=== PATIENT | male | born 1955 | race Caucasian/White ===

== ENCOUNTER 2022-02-07 09:04 | Day surgery (SDC) | payer MEDICARE, SELFPAY ==
[2021-12-04 13:19] VITALS: BMI 27.5
--- NOTE | 2021-12-09 08:41 | HO.ANESPROP2 ---
HPI - Anesthesia Eval Consult details Narrative: 66yo M for Colonoscopy PMF Active Problems Active Problems: All Active Problems (Updated 12/04/21 @ 13:14 by Chichi Saab RN) Allergic reaction (Acute) Cellulitis and abscess of left leg (Acute) Preop exam for internal medicine (Acute) Anxiety (Acute) Past Medical History Medical History (Updated 12/04/21 @ 13:14 by Chichi Saab RN) Anxiety Arthritis BPH (benign prostatic hyperplasia) Family History Family History (Updated 07/04/20 @ 11:02 by SHIVAM Carrion) Mother No problems noted. Father No problems noted. Surgical History Surgical History (Updated 12/04/21 @ 13:18 by Chichi aSab RN) H/O colonoscopy Hx of cataract surgery Hx of transurethral resection of prostate Social History Social History (Updated 07/04/20 @ 11:03 by SHIVAM Carrion) Alcohol intake: current Alcohol intake frequency: holidays/special occasions only Meds Allergies Allergy/AdvReac Type Severity Reaction Status Date / Time Erythromycin Allergy Intermediate Rash, Verified 12/04/21 13:13 redness and itching Home Medications Medication Instructions Recorded Confirmed Last Taken Type celecoxib 200 mg capsule 200 mg PO DAILY 04/10/20 07/05/20 Unknown History meloxicam 7.5 mg tablet 7.5 mg PO DAILY 04/10/20 07/05/20 Unknown History acetazolamide 500 mg 500 mg PO ONCE 07/04/20 07/05/20 Unknown History capsule,extended release brinzolamide 1 %-brimonidine 0.2 % 1 drp ophthalmic (eye) 07/04/20 07/05/20 Unknown History eye drops,suspension ofloxacin 0.3 % eye drops 1 drp ophthalmic (eye) 07/04/20 07/05/20 Unknown History prednisolone acetate 1 % eye 1 drp ophthalmic (eye) 07/04/20 07/05/20 Unknown History drops,suspension timolol maleate 0.5 % eye drops 1 drp ophthalmic (eye) BID 07/04/20 12/04/21 Unknown History betamethasone valerate 0.1 % lotion 1 appl topical DAILY 07/11/20 12/04/21 Unknown History gabapentin 600 mg tablet 600 mg PO BEDTIME 12/04/21 12/04/21 Unknown History Exam Exam Date and Time: December 09, 2021 0841 Height,Weight and Vital Signs: Height 6 ft Weight 92.079 kg Assessment and Plan Assessment Anesthesia Assessment: Chart Reviewed
--- NOTE | 2022-02-06 10:01 | P.CONAN_ITS ---
Documented by User: Kimberlyn Meyers NP 02/06/22 10:02 HPI - Anesthesia Eval Consult details Narrative: 66yo M for Colonoscopy PMFSH Active Problems Active Problems: All Active Problems (Updated 12/23/21 @ 10:18 by Jesse Burgos MD) Glaucoma (Acute) Arthritis (Acute) Chronic GERD (Acute) Physical exam (Acute) Allergic reaction (Acute) Cellulitis and abscess of left leg (Acute) Preop exam for internal medicine (Acute) Anxiety (Acute) Past Medical History Medical History Anxiety BPH (benign prostatic hyperplasia) Family History Family History (Updated 07/04/20 @ 11:02 by SHIVAM Carrion) Mother No problems noted. Father No problems noted. Surgical History Surgical History H/O colonoscopy Hx of cataract surgery Hx of transurethral resection of prostate Social History Social History (Updated 07/04/20 @ 11:03 by SHIVAM Carrion) Housing: House Alcohol intake: current Alcohol intake frequency: holidays/special occasions only Patient Tobacco Use Status: Never used Tobacco e-Cigarette/Vaping Use: Never Used Second Hand Smoke Exposure: No Use of substances other than those prescribed or required for medical reasons: No Are you DNR?: No Advance Directives: No Advance Directives Information Provided: Yes service: No Current occupational status: retired Cognitive needs: No Hearing needs: No Vision needs: Yes Meds Allergies Allergy/AdvReac Type Severity Reaction Status Date / Time No Known Allergies Allergy Verified 12/23/21 09:55 Home Medications Medication Instructions Recorded Confirmed Last Taken Type timolol maleate 0.5 % eye drops 1 drp ophthalmic (eye) BID 07/04/20 12/23/21 Unknown History gabapentin 600 mg tablet 600 mg PO BEDTIME 12/04/21 12/23/21 Unknown History Exam Exam Date and Time: February 06, 2022 1001 Height,Weight and Vital Signs: Height 6 ft Weight 92.079 kg Assessment and Plan Assessment Anesthesia Assessment: Chart Reviewed Documented by User: Ana Chappell MD 02/07/22 09:54 [facility] Past Medical History Medical History Anxiety BPH (benign prostatic hyperplasia) Family History Family History (Updated 07/04/20 @ 11:02 by SHIVAM Carrion) Mother No problems noted. Father No problems noted. Family history of problems with anesthesia: No Surgical History Surgical History H/O colonoscopy Hx of cataract surgery Hx of transurethral resection of prostate History of Problems with Anesthesia: No Social History Social History (Updated 07/04/20 @ 11:03 by SHIVAM Carrion) Housing: House Alcohol intake: current Alcohol intake frequency: holidays/special occasions only Patient Tobacco Use Status: Never used Tobacco e-Cigarette/Vaping Use: Never Used Second Hand Smoke Exposure: No Use of substances other than those prescribed or required for medical reasons: No Are you DNR?: No Advance Directives: No Advance Directives Information Provided: Yes service: No Current occupational status: retired Cognitive needs: No Hearing needs: No Vision needs: Yes Meds Allergies Allergy/AdvReac Type Severity Reaction Status Date / Time No Known Allergies Allergy Verified 12/23/21 09:55 Home Medications Medication Instructions Recorded Confirmed Last Taken Type timolol maleate 0.5 % eye drops 1 drp ophthalmic (eye) BID 07/04/20 12/23/21 Unknown History gabapentin 600 mg tablet 600 mg PO BEDTIME 12/04/21 12/23/21 Unknown History Exam Airway Mallampati Class: II TM Dist: >3cm Neck ROM: Full Loose/Missing/Broken Teeth: Yes and Upper Assessment and Plan Assessment Anesthesia Assessment: Anesthesia Plan Discussed Final Anesthetic Review Family History of Problems with Anesthesia: No History of Problems with Anesthesia: No NPO: Yes ASA Class: II Final Preanesthetic Review: No Changes in Pt Med Stat, Meds/Allgs Chart Reviewed, Consent Obtained/Reviewed and Anes Risks/Benef Reviewed Patient Risk: Low Procedure Risk: Low Anesthetic Plan Anesthetic Plan: MAC: Disposition: Standard PACU
[2022-02-07 09:28] VITALS: BMI 28.5
[2022-02-07 09:34] VITALS: BP 119/68; PULSE 67; RESP 17; TEMP 36.8; O2SAT 97
[2022-02-07] MEDS: Lactated Ringers 1,000 ML 100 ML IVCONT (09:49)
--- NOTE | 2022-02-07 09:55 | MHC.SHP ---
Pre-Procedural Eval Section A Date of Service: 02/07/22 Section B Chief Complaint: screening Details of Present Illness: see H&P no changes Relevant Family History (Specify if Yes): No Relevant Social History: None Present Medications: see Short Stay Collaborative assessment Medical History: No relevant PMH History of Previous Operations: No relevant previous surgery Allergies: Allergies Allergy/AdvReac Type Severity Reaction Status Date / Time No Known Allergies Allergy Verified 12/23/21 09:55 Review of Systems Sugical H&P ROS: Negative: Constitution, Cardiovascular, Respiratory, Neurological, Psychiatric, Hem-Onc, Allergic/Immunologic, Gastrointestinal, Genitourinary, Musculoskeletal, Integumentary, Endocrine and Eyes/Ears/Nose/Throat Exam Surgical H&P Exam: Normal: HEENT, Normal: Heart, Normal: Lungs, Normal: Extremities, Normal: Abdomen, Normal: Skin and Normal: Neurological Plan Diagnosis/Plan: Unchanged I have reviewed the history and physical and performed a pertinent physical examination on my patient. No changes have occurred unless specified.
--- NOTE | 2022-02-07 10:30 | PM.OP ---
Brief Operative Note Date of Service: 02/07/22 Pre-op diagnosis: screening Post-op diagnosis: same Procedure: colonoscopy Surgeon: Abdoulaye Min Was an Automotive Airconditioning Mechanic used for this Procedure?: No Estimated blood loss (mL): 2 Pathology: other Condition: stable Disposition: PACU
[2022-02-07 10:35] VITALS: BP 109/66; PULSE 62; RESP 16; TEMP 36.4
[2022-02-07 10:50] VITALS: BP 116/88; PULSE 58; RESP 18; TEMP 36.4; O2SAT 100
--- NOTE | 2022-02-07 11:06 | OP_ITS ---
SURGEON: Abdoulaye Min MD INDICATIONS: Colon cancer screening. PREOPERATIVE DIAGNOSIS: POSTOPERATIVE DIAGNOSIS: PROCEDURE PERFORMED: Colonoscopy to the terminal ileum with biopsy and snare polypectomy. ESTIMATED BLOOD LOSS: COMPLICATIONS: ANESTHESIA: ASSISTANTS: SPECIMENS: MEDICATIONS: Monitored anesthesia care. DESCRIPTION OF PROCEDURE: History and physical performed. The risks and benefits of the procedure were explained to the patient. Informed consent was obtained. The patient was placed in left lateral decubitus position. A digital rectal exam was performed and was found to be normal. The Olympus pediatric video colonoscope was introduced into the rectum and advanced to the cecum without difficulty. The cecum was identified by transillumination, palpation, and identification of ileocecal valve. Examination was performed. The scope was removed. He tolerated the procedure well and was returned to recovery area in stable condition. FINDINGS: The terminal ileum was examined and appeared normal. The visualized colonic mucosa was within normal limits without evidence of masses or ulcers. Two polyps were identified. The first was located at 70 cm measuring less than 5 mm and was removed with biopsy forceps. The second was located at 20 cm measuring approximately 8 mm, was removed with a snare. No other polyps were identified. There was moderate sigmoid diverticulosis with an area of luminal narrowing between 25 cm and 30 cm, but no obvious mass lesions identified. Retroflexed examination showed moderate-sized internal hemorrhoids. IMPRESSION: Colon polyps. RECOMMENDATIONS: Follow up the biopsy results. MD JOSE ALBERTO Paul/LAWANDA / [id number]
== END 2022-02-07 11:08 | disposition home or self-care (01) ==
PROVIDERS: PCP Internal Medicine; Visit Provider Internal Medicine Gastroenterology
PROC: 0DJD8ZZ Inspection of Lower Intestinal Tract, Via Natural or Artificial Opening Endoscopic (ICD-10-PCS; CPT 45378; principal; 2022-02-07 10:10)
DX: Z12.11 Encounter for screening for malignant neoplasm of colon (principal); K63.5 Polyp of colon; K57.30 Diverticulosis of large intestine without perforation or abscess without bleeding; K64.8 Other hemorrhoids; N40.0 Benign prostatic hyperplasia without lower urinary tract symptoms; F41.0 Panic disorder [episodic paroxysmal anxiety]; K59.03 Drug induced constipation; Z79.899 Other long term (current) drug therapy
CPT/HCPCS: 45385; 45380; 88305

== ENCOUNTER 2022-04-16 06:33 | Outpatient (REF) | payer MEDICARE, SELFPAY ==
--- NOTE | ~2022-04-16 | XR_ITS ---
EXAMINATION: XR FOOT, RIGHT CLINICAL INFORMATION: Soft tissue infection COMPARISON: None TECHNIQUE: AP, lateral, and oblique views of the right foot. FINDINGS: The bones and soft tissues are normal. No fracture. Alignment is anatomic. Joint spaces are maintained. Normal soft tissues. No abnormal air collection or soft tissue foreign body. Small plantar calcaneal spur. XR/XR foot RT min 3V IMPRESSION: Small plantar calcaneal spur. Otherwise unremarkable exam.
[2022-04-18 05:02] LABS: Lyme Abs Screen <0.90 index
== END 2022-04-16 06:34 | disposition home or self-care (01) ==
LOC: HO.XRAY 06:33
PROVIDERS: Absent Provider Nurse Practitioner Family; PCP Internal Medicine; Visit Provider Internal Medicine
DX: L08.9 Local infection of the skin and subcutaneous tissue, unspecified (principal); R60.0 Localized edema
CPT/HCPCS: 36415; 73630; 86617; 86618

== ENCOUNTER → 2022-05-13 12:53 | Outpatient (BNVA) | payer MEDICARE, SELFPAY | PROVIDERS: PCP Internal Medicine; Referring Provider Internal Medicine; Visit Provider Internal Medicine | DX: R07.2 Precordial pain (principal); R06.02 Shortness of breath | CPT/HCPCS: 93005; 99202 ==

== ENCOUNTER → 2022-07-03 09:53 | Outpatient (REF) | payer MEDICARE, SELFPAY ==
--- NOTE | 2022-07-03 09:56 | CA_ITS ---
Acquisition Time: 2022-07-03 10:41:27 Total Exercise Time: 00:03:44 Test Indications: cp, sob Medications: see chart Protocol: ERMA Max HR: 139 BPM 91% of Pred: 152 BPM Max BP: 152/080 mmHG Max Work Load: 5.4 METS Exercise stress test with exercise 3 min 44 sec of Erma protocol, achieving 90% MPHR, 5.4 METs, with report of sob and dizziness with request to stop as he was starting to get panicky , no chest discomfort, with isolated PAC, with normotensive response to exercise, without EKG changes meeting criteria for ischemia. In recovery his symptoms quickly resolved. Test reviewed with Dr Roach Referred By: Terry Roach Overread By: MICHAEL FRANK
--- NOTE | 2022-07-03 09:56 | CA_ITS ---
Transthoracic Echocardiogram Patient (Last, First, Middle): Kevin Calvert L Gender: Male Date of : 1955 Age: 66 Procedure Date: 07/03/2022 Procedure Type: Transthoracic Echocardiogram Location: OP Height: 182.88 cm Weight: 92.99 kg BSA: 2.15 m2 Heart Rate: bpm BP: 128 / 80 mmHg Jukebox Operator: SB Referring MD: Terry Roach MD Symptoms: R06.02 - Shortness of breath Study Quality: Adequate ECG Rhythm: Sinus Conclusions: - The left ventricular systolic function is normal. The visually estimated ejection fraction is between 60-65%. - No obvious valvular pathology seen on this study. Findings Left Ventricle Normal left ventricular cavity size. The left ventricular systolic function is normal. The visually estimated ejection fraction is between 60-65%. There is no evidence of regional wall motion abnormalities. Diastolic function is normal for age. There is mild septal asymmetric hypertrophy. LV peak GLS -19.3%. Right Ventricle Normal right ventricular cavity size and systolic function. Atria Both atria are normal in size. Aortic Valve There is a normal trileaflet aortic valve. There is no aortic valve stenosis. There is no aortic valve regurgitation. Mitral Valve The mitral valve appears normal. There is trace mitral valve regurgitation. There is no mitral valve stenosis. Pulmonic Valve The pulmonic valve is likely normal. Tricuspid Valve Normal tricuspid valve structure. There is trace tricuspid valve regurgitation. There is no evidence of pulmonary hypertension. Great Vessels The asc aorta is normal in size. Venous The inferior vena cava is normal in size and collapses greater than 50% with inspiration. Pericardium/Pleural There is no evidence of pericardial effusion. Prior Study Comparison No prior study available for comparison. Recommendations, Care & Conclusions No obvious valvular pathology seen on this study. Measurements 2D Linear Measurements IVSd: 1.25 0.6-0.9/0.6-1.0 cm LVIDd: 4.56 3.9-5.3/4.2-5.9 cm LVIDd Index: 2.12 2.4-3.2/2.2-3.1 cm/m2 LVIDs: 3.19 2.0-3.6 cm LVPWd: 0.80 0.7-1.1 cm LA Diam: 2.80 2.7-3.8/3.0-4.0 cm LAIDs Index: 1.30 1.5-2.3 cm/m2 LV Mass: 201.20 67-162/88-224 g LV Mass Index: 93.58 43-95/49-115 g/m2 LVOT Diam: 2.30 3.0+(-)1.3 cm 2D Systolic Function EF 4C: 59.80 >55% EF 2C: 77.80 >55% EF BiP: 70.30 >55% Mitral Valve MV Pk E: 0.63 MV PK A: 0.54 MV Decel Time: 228.00 E/A: 1.20 E'Lateral: 9.25 E'Medial: 6.31 E/E' Med: 10.00 E/E' Lat: 6.80 PHT: 67.00 MVA PHT: 3.28 Decel Yell: 2.76 Aortic Valve AoV Pk Wenceslao: 1.31 AoV Pk Grad: 7.00 MARA: 3.99 LVOT LVOT Pk Wenceslao: 1.26 LVOT Mn Wenceslao: 0.81 LVOT VTI: 0.27 LVOT Pk Grad: 6.00 LVOT Mn Grad: 3.00 LVOT Diam: 2.30 LVOT Area: 4.15 Diastolic Function MV Pk E: 0.63 MV Pk A: 0.54 E/A: 1.20 E'Medial: 6.31 E/E' Med: 10.00 E' Laterial: 9.25 E/E' Lat: 6.80 Right Ventricle TAPSE (mm): 24.30 TVS' Wenceslao: 11.50 Tricuspid Valve RA Press: 3.00 Great Vessels Aorta Sinus of Valsalva: 3.50 2.0-3.5 cm Ao Asc: 3.30 2.1-3.4 cm Pulmonary Veins Pulm Vein S/D 1.30 Pulmonary Valve PV Pk Wenceslao: 1.79 Peak PV Grad: 13.00 Updated in Other Vendor System with Status of Final Terry Roach MD electronically signed on 07/05/2022 12:29:41 PM with status of Final
== END ==
LOC: HO.CARD 09:53
PROVIDERS: PCP Internal Medicine; Visit Provider Internal Medicine
DX: R07.2 Precordial pain (principal); R06.02 Shortness of breath
CPT/HCPCS: 93017; 93306; 93356

== ENCOUNTER → 2022-09-10 12:27 | Outpatient (BNVA) | payer MEDICARE, SELFPAY | PROVIDERS: PCP Internal Medicine; Referring Provider Internal Medicine; Visit Provider Internal Medicine | DX: R07.2 Precordial pain (principal); R06.02 Shortness of breath; R94.39 Abnormal result of other cardiovascular function study | CPT/HCPCS: 99212 ==

== ENCOUNTER 2022-11-12 07:29 | Outpatient (REF) | payer MEDICARE, SELFPAY ==
--- NOTE | ~2022-11-12 | XR_ITS ---
EXAMINATION: XR CHEST CLINICAL INFORMATION: R06.00 - Dyspnea, unspecified COMPARISON: Chest radiographs 07/25/2017 TECHNIQUE: 2 views of the chest were obtained. FINDINGS: Heart size normal. Vascularity normal. No pneumothorax, airspace solid lesion, vascular congestion, or effusion. There is fine linear scar versus disc atelectasis left lower zone. Old small granuloma is again seen left perihilar region in retrospect similar to 2018. There is small sliding internal hernia approximately 5.5 cm retrocardiac region best seen on frontal view. The hilar and mediastinal contours are otherwise unremarkable. Bony structures are unremarkable. XR/XR chest 2V IMPRESSION: -No acute intrathoracic disease. No pneumothorax, infiltrate, or effusion. -Fine linear scar versus disc atelectasis inferior lingula. -Small sliding hiatal hernia.
[2022-11-12 07:37] LABS: MANUAL DIFF FLAG NO
[2022-11-12 08:08] LABS: Basophils Absolute Auto 0.1 X10*3/uL (0.0-0.2); Basophils Percent Auto 1.6 % (0-2); Eosinophils Absolute Auto 0.8 X10*3/uL (0.0-0.4); Eosinophils Percent Auto 10.8 % (0-4); Hemoglobin 11.5 g/dl (14.0-18.0); Imm Gran Abs Auto 0.02 X10*3/uL (0.00-0.03); Imm Gran Pct Auto 0.3 % (0.0-0.4); Lymphocytes Absolute Auto 1.8 X10*3/uL (1.2-4.9); Lymphocytes Percent Auto 23.6 % (20-40); Mean Corpuscular HGB Conc 30.3 g/dl (31.0-36.0); Mean Corpuscular Hemoglobin 24.8 pg (27.0-33.0); Mean Corpuscular Volume 81.9 fL (80.0-98.0); Mean Platelet Volume 10.8 fL (9.4-12.4); Monocytes Absolute Auto 0.8 X10*3/uL (0.1-1.2); Monocytes Percent Auto 10.5 % (2-11); Neutrophils Absolute Auto 4.1 x10*3/uL (2.0-8.3); Neutrophils Percent Auto 53.2 % (45-73); Platelet Count 250 X10*3/uL (160-400); Red Blood Count 4.64 X10*6/uL (4.60-5.80); White Blood Count 7.7 X10*3/uL (4.8-10.8)
[2022-11-12 08:55] LABS: Alanine Aminotransferase 20 U/L (0-40); Albumin Level 4.3 g/dL (3.5-5.0); Alkaline Phosphatase 70 U/L (39-117); Anion Gap 12 (12-20); Aspartate Amino Transferase 22 U/L (5-37); Bilirubin Total 0.6 mg/dL (0.0-1.0); Blood Urea Nitrogen 19 mg/dL (9-16); Calcium 9.3 mg/dL (8.4-10.2); Carbon Dioxide 28 mmol/L (22-29); Chloride 109 mmol/L (96-108); Cholesterol 181 mg/dL; Estimated Glomerular Filt Rate > 60; Glucose Fasting 93 mg/dL (60-99); Glucose Random 91 mg/dL (60-115); HDL Cholesterol 56 mg/dL; LDL Cholesterol Calculated 109 mg/dl; Potassium 4.5 mmol/L (3.3-5.1); Sodium 144 mmol/L (135-145); Triglycerides 80 mg/dL
[2022-11-12 09:15] LABS: Thyroid Stimulating Hormone 0.96 uIU/mL (0.32-4.0)
== END 2022-11-12 07:30 | disposition home or self-care (01) ==
LOC: HO.LAB 07:29
PROVIDERS: PCP Internal Medicine; Visit Provider Internal Medicine
DX: R07.2 Precordial pain (principal); E03.9 Hypothyroidism, unspecified; E78.5 Hyperlipidemia, unspecified; D64.9 Anemia, unspecified; N28.9 Disorder of kidney and ureter, unspecified; R06.00 Dyspnea, unspecified
CPT/HCPCS: 36415; 71046; 80048; 80053; 80061; 84443; 85025

== ENCOUNTER → 2022-12-22 12:48 | Outpatient (BNVA) | payer MEDICARE, SELFPAY | PROVIDERS: PCP Internal Medicine; Referring Provider Internal Medicine; Visit Provider Internal Medicine | DX: R06.02 Shortness of breath (principal); J43.9 Emphysema, unspecified | CPT/HCPCS: 99212 ==

== ENCOUNTER 2023-01-15 11:12 | Outpatient (REF) | payer MEDICARE, SELFPAY ==
--- NOTE | 2023-01-15 11:57 | PFT_ITS ---
FLOWS: 1. FEV1 84% of predicted at 3.00 L. 2. FVC 96% of predicted at 4.6 L. 3. FEV1 to FVC ratio of 0.65. 4. Positive bronchodilator response. LUNG VOLUMES: 1. Total lung capacity 84% of predicted at 6.29 L. 2. Residual volume 77% of predicted at 1.97 L. 3. Slow vital capacity 88% of predicted at 4.32 L. 4. Expiratory reserve volume 59% of predicted at 0.84 L. 5. Diffusion capacity is mildly decreased. IMPRESSION: Reversible moderate obstructive ventilatory defect with positive bronchodilator response. Decreased diffusion capacity suggests emphysema. MD ROSALIND Fall/MODL / [id number]
== END 2023-01-15 11:13 | disposition home or self-care (01) ==
LOC: HO.RESP 11:12
PROVIDERS: PCP Internal Medicine; Referring Provider Internal Medicine Pulmonary Disease; Visit Provider Internal Medicine
DX: R06.00 Dyspnea, unspecified (principal)
CPT/HCPCS: 94010; 94727; 94729

== ENCOUNTER → 2023-01-15 11:57 | Outpatient (BNV) | payer MEDICARE, SELFPAY | PROVIDERS: PCP Internal Medicine; Referring Provider Internal Medicine Pulmonary Disease; Visit Provider Internal Medicine Pulmonary Disease | DX: J43.9 Emphysema, unspecified (principal) | CPT/HCPCS: 94060; 94727; 94729 ==

== ENCOUNTER 2023-02-03 14:01 | Outpatient (AMB) | payer MEDICARE, SELFPAY ==
[2023-02-03 14:04] VITALS: BP 128/76; PULSE 92; O2SAT 96; BMI 28.9
--- NOTE | 2023-02-03 14:04 | A.OFFVIS_ITS ---
Intake Vital Signs 02/03/23 14:04 Height 6 ft Weight 212 lb 11.937 oz BMI 28.9 BP 128/76 Blood Pressure Location Lt brachial Position Sitting Pulse 92 Pulse Source Pulse Oximeter Pulse Oximetry (%) 96 Oxygen Delivery Method Room Air Intake Visit Reasons: Emphysema Intake Note: Pt reports head rushes when trying to tie his shoes and shortness of breath on exertion. He had a chest CT and completed a stress test and says he barely passed due to his shortness of breath. He says his lungs feel fine when he walks and that he has had blood in his urine. He also brings up mucus when coughing, denies wheezing. He has the albuterol inhaler but says it does not do anything so he gave it to his neighbor. Health Care Facilities Inspector Required: No Allergies No Known Allergies Allergy (Verified 02/03/23 14:11) HPI Emphysema HPI Details 67-year-old gentleman, former 40 pack-year smoker, quit 2016 undergoing cardiac workup for underlying dyspnea on exertion, noted to have pulmonary emphysema with moderate reversible obstruction and decreased diffusion capacity on pulmonary function testing and was referred for further follow-up. Patient states that he can walk without limitations on level ground, however he gets significant dyspnea with stairs or going up inclines. Patient recently had some bronchitic symptoms in was treated with amoxicillin by his primary care provider with resolution. He denies family history of lung disease. 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 He also complains of intermittent seasonal allergies. [facility]LY [facility] Medical History Anxiety BPH (benign prostatic hyperplasia) Surgical History H/O colonoscopy Hx of cataract surgery Hx of transurethral resection of prostate Family History Mother No problems noted. Father No problems noted. Social History (Updated 02/03/23 @ 14:13 by Mile Schwab CMA) Housing: House Alcohol intake: current Alcohol intake frequency: holidays/special occasions only Patient Tobacco Use Status: Former Tobacco user Tobacco use type: Cigarette Years Smoked: 40 e-Cigarette/Vaping Use: Never Used Second Hand Smoke Exposure: No service: No Current occupational status: retired Cognitive needs: No Hearing needs: No Vision needs: Yes Review of Systems Const Denies daytime sleepiness, Denies excessive sweating, Denies fatigue, Denies fever(s), Denies lethargy, Denies malaise, Denies night sweats, Denies snoring and Denies weight loss Eyes Denies blurry vision and Denies itchy eyes ENT Denies nasal congestion, Denies post nasal drip, Denies sinus pain, Denies sinus pressure and Denies other ( Thrush) Card Denies chest pain, Denies pedal edema, Denies dyspnea, Reports dyspnea on exertion, Denies orthopnea and Denies paroxysmal nocturnal dyspnea Resp Denies cough, Denies hemoptysis, Denies excessive phlegm production, Denies dyspnea, Reports dyspnea on exertion, Denies snoring and Denies wheezing GI Denies abdominal pain and Denies heartburn Musc Denies myalgias, Denies arthralgias and Denies joint swelling Skin/Breast Denies rash Neuro Denies memory loss and Denies seizure-like activity Psych Denies abnormal sleep pattern, Denies anxiety and Denies memory loss Endo Denies excessive sweating, Denies fatigue and Denies heat intolerance Paco/Lymph Denies easy bruising Aller/Immun Denies itchy eyes, Denies seasonal rhinorrhea and Denies wheezing Physical Exam Vital Signs: Last Vital Signs Pulse 92 02/03/23 14:04 BP 128/76 02/03/23 14:04 Pulse Ox 96 02/03/23 14:04 Oxygen Delivery Method Room Air 02/03/23 14:04 BMI result Body Mass Index 28.9 Const General: no acute distress and alert Nutritional Appearance: not obese Orientation/consciousness: Other orientation findings ( oriented) HEENT Head: Yes atraumatic Eyes General: appearance normal, both eyes and all related structures Sclerae: sclerae normal EOM: EOMs intact bilaterally Neck Neck: Yes supple Lymphatic: no lymphadenopathy noted Resp Effort & Inspection: normal respiratory effort and no use of accessory muscles Auscultation: clear to auscultation bilaterally Cardio Rate: regular rate Rhythm: regular rhythm Heart sounds: no gallops, no murmurs and no rubs Skin General skin exam: other ( warm) Extrem General: No clubbing, No cyanosis and No edema Assessment & Plan Assessment & Plan (1) COPD (chronic obstructive pulmonary disease): Code(s): J44.9 - Chronic obstructive pulmonary disease, unspecified Plan: Moderate COPD with good response to bronchodilator. Will start on Spiriva. Continue albuterol MDI. (2) ILD (interstitial lung disease): Code(s): J84.9 - Interstitial pulmonary disease, unspecified Plan: Possible underlying ILD with underlying decreased DLCO and after exposure to industrial dusts. Will obtain CT chest for further evaluation. Orders: Orders CT chest wo IV con Today J84.9 - Interstitial pulmonary disease, unspecified Medications: New Spiriva Respimat 2.5 mcg/actuation (tiotropium bromide) 2 inhalations inhalation QAM 30 days 4 grams 6RF NS J43.9 - Emphysema, unspecified Coding Level of Care Code New Pt Level 4 (48769) Diagnoses COPD (chronic obstructive pulmonary disease) J44.9 ILD (interstitial lung disease) J84.9
== END 2023-02-03 15:08 | disposition home or self-care (01) ==
PROVIDERS: PCP Internal Medicine; Visit Provider Internal Medicine Pulmonary Disease
DX: J44.9 Chronic obstructive pulmonary disease, unspecified (principal); J84.9 Interstitial pulmonary disease, unspecified
CPT/HCPCS: 99214

== ENCOUNTER → 2023-02-03 14:01 | Outpatient (BNVA) | payer MEDICARE, SELFPAY | PROVIDERS: PCP Internal Medicine; Visit Provider Internal Medicine Pulmonary Disease | DX: J44.9 Chronic obstructive pulmonary disease, unspecified (principal); J84.9 Interstitial pulmonary disease, unspecified | CPT/HCPCS: 99212 ==

== ENCOUNTER 2023-03-03 10:07 | Outpatient (REF) | payer MEDICARE, SELFPAY ==
--- NOTE | ~2023-03-03 | CT_ITS ---
EXAMINATION: CT CHEST WITHOUT CONTRAST CLINICAL INFORMATION: Interstitial pulmonary disease. COMPARISON: None available. TECHNIQUE: Multidetector volumetric CT imaging of the chest was done. Axial MIP volume rendering provided. Sagittal and coronal reformatted images were obtained. This CT examination was performed using dose optimization techniques as appropriate, variously including the following: *Automated exposure control *Adjustment of mA and/or kV according to patient size (this includes techniques or standardized protocols for targeted exams where dose is matched to indication/reason for exam; i.e. extremities or head) *Use of iterative reconstruction technique DLP: 384 mGy-cm FINDINGS: LUNGS: Mild centrilobular emphysema. 4 mm nodule right middle lobe on image 171. No thickening of the intralobular septa. No evidence of honeycombing. No parenchymal consolidation. Central airways are patent. MEDIASTINUM: Imaged thyroid gland is mildly heterogeneous. No bulky axillary, hilar or mediastinal lymphadenopathy. Patulous dilated esophagus containing fluid and debris. Left pulmonary artery is dilated. Heart size is normal. No pericardial effusion. CORONARY ARTERY CALCIFICATION: None visualized on this study. PLEURA: No pleural effusion. UPPER ABDOMEN: Moderate to large hiatal hernia. No adrenal mass. Colonic diverticular disease. Right renal cyst partially imaged. OSSEOUS STRUCTURES: No destructive bone lesions. CT/CT chest wo IV con IMPRESSION: 4 mm right middle lobe pulmonary nodule. Follow-up chest CT in 12 months may be considered. Dilated left main pulmonary artery. Patulous dilated esophagus.
== END 2023-03-03 10:08 | disposition home or self-care (01) ==
LOC: HO.CT 10:07
PROVIDERS: PCP Internal Medicine; Visit Provider Internal Medicine Pulmonary Disease
DX: J84.9 Interstitial pulmonary disease, unspecified (principal)
CPT/HCPCS: 71250

== ENCOUNTER 2023-03-17 13:57 | Outpatient (AMB) | payer MEDICARE, SELFPAY ==
[2023-03-17 14:05] VITALS: BP 124/77; PULSE 104; O2SAT 96; BMI 28.7
--- NOTE | 2023-03-17 14:05 | MHC.OFFVIS ---
Intake Vital Signs 03/17/23 14:05 Height 6 ft Weight 211 lb 10.3 oz BMI 28.7 BP 124/77 Blood Pressure Location Lt brachial Position Sitting Pulse 104 H Pulse Source Doppler Pulse Oximetry (%) 96 Oxygen Delivery Method Room Air Intake Visit Reasons: Emphysema Allergies No Known Allergies Allergy (Verified 03/17/23 14:09) HPI Emphysema HPI Details 67-year-old gentleman, former 40 pack-year smoker, quit 2016 undergoing cardiac workup for underlying dyspnea on exertion, noted to have pulmonary emphysema with moderate reversible obstruction and decreased diffusion capacity on pulmonary function testing and was referred for further follow-up. Patient states that he can walk without limitations on level ground, however he gets significant dyspnea with stairs or going up inclines. Patient recently had some bronchitic symptoms in was treated with amoxicillin by his primary care provider with resolution. He denies family history of lung disease. 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 He also complains of intermittent seasonal allergies. After the last office visit his insurance did not cover Anoro. He was unable to get Spiriva, and has been using Combivent instead with suboptimal control of his symptoms. He completed his CT chest that showed no pulmonary fibrosis, but a 4 mm nodule. He denies acute exacerbation. [facility] Medical History (Updated 03/17/23 @ 14:23 by Michael House MD) BPH (benign prostatic hyperplasia) Anxiety Surgical History Hx of transurethral resection of prostate H/O colonoscopy Hx of cataract surgery Family History Mother No problems noted. Father No problems noted. Social History Housing: House Alcohol intake: current Alcohol intake frequency: holidays/special occasions only Patient Tobacco Use Status: Former Tobacco user Tobacco use type: Cigarette Years Smoked: 40 e-Cigarette/Vaping Use: Never Used Second Hand Smoke Exposure: No service: No Current occupational status: retired Cognitive needs: No Hearing needs: No Vision needs: Yes Review of Systems Const Denies daytime sleepiness, Denies excessive sweating, Denies fatigue, Denies fever(s), Denies lethargy, Denies malaise, Denies night sweats, Denies snoring and Denies weight loss Eyes Denies blurry vision and Denies itchy eyes ENT Denies nasal congestion, Denies post nasal drip, Denies sinus pain, Denies sinus pressure and Denies other ( Thrush) Card Denies chest pain, Denies pedal edema, Denies dyspnea, Reports dyspnea on exertion, Denies orthopnea and Denies paroxysmal nocturnal dyspnea Resp Denies cough, Denies hemoptysis, Denies excessive phlegm production, Denies dyspnea, Reports dyspnea on exertion, Denies snoring and Denies wheezing GI Denies abdominal pain and Denies heartburn Musc Denies myalgias, Denies arthralgias and Denies joint swelling Skin/Breast Denies rash Neuro Denies memory loss and Denies seizure-like activity Psych Denies abnormal sleep pattern, Denies anxiety and Denies memory loss Endo Denies excessive sweating, Denies fatigue and Denies heat intolerance Paco/Lymph Denies easy bruising Aller/Immun Denies itchy eyes, Denies seasonal rhinorrhea and Denies wheezing Physical Exam Vital Signs: Last Vital Signs Pulse 104 H 03/17/23 14:05 BP 124/77 03/17/23 14:05 Pulse Ox 96 03/17/23 14:05 Oxygen Delivery Method Room Air 03/17/23 14:05 BMI result Body Mass Index 28.7 Const General: no acute distress and alert Nutritional Appearance: not obese Orientation/consciousness: Other orientation findings ( oriented) HEENT Head: Yes atraumatic Eyes General: appearance normal, both eyes and all related structures Sclerae: sclerae normal EOM: EOMs intact bilaterally Neck Neck: Yes supple Lymphatic: no lymphadenopathy noted Resp Effort & Inspection: normal respiratory effort and no use of accessory muscles Auscultation: clear to auscultation bilaterally Cardio Rate: regular rate Rhythm: regular rhythm Heart sounds: no gallops, no murmurs and no rubs Skin General skin exam: other ( warm) Extrem General: No clubbing, No cyanosis and No edema Assessment & Plan Assessment & Plan (1) COPD (chronic obstructive pulmonary disease): Code(s): J44.9 - Chronic obstructive pulmonary disease, unspecified Plan: Suboptimal control on Combivent. Will reorder Spiriva. Continue albuterol MDI. (2) Dyspnea: Code(s): R06.00 - Dyspnea, unspecified Plan: Likely multifactorial with underlying contribution from pulmonary and cardiac etiologies. (3) Pulmonary nodule: Code(s): R91.1 - Solitary pulmonary nodule Plan: Results of CT chest reviewed. No evidence of underlying fibrosis, some emphysema. 4 mm nodule. Will repeat CT chest in 12 months. Coding Level of Care Code Est Pt Level 4 (81488) Diagnoses COPD (chronic obstructive pulmonary disease) J44.9 Dyspnea R06.00 Pulmonary nodule R91.1
== END 2023-03-17 14:22 | disposition home or self-care (01) ==
PROVIDERS: PCP Internal Medicine; Visit Provider Internal Medicine Pulmonary Disease
DX: J44.9 Chronic obstructive pulmonary disease, unspecified (principal); R06.00 Dyspnea, unspecified; R91.1 Solitary pulmonary nodule
CPT/HCPCS: 99214

== ENCOUNTER → 2023-03-17 13:57 | Outpatient (BNVA) | payer MEDICARE, SELFPAY | PROVIDERS: PCP Internal Medicine; Visit Provider Internal Medicine Pulmonary Disease | DX: J44.9 Chronic obstructive pulmonary disease, unspecified (principal); R06.00 Dyspnea, unspecified; R91.1 Solitary pulmonary nodule | CPT/HCPCS: 99212 ==

== ENCOUNTER 2023-04-30 13:26 | Outpatient (AMB) | payer MEDICARE, SELFPAY ==
[2023-04-30 13:30] VITALS: BP 118/70; PULSE 101; O2SAT 97; BMI 29.4
--- NOTE | 2023-04-30 13:30 | MHC.OFFVIS ---
Intake Vital Signs 04/30/23 13:30 Height 6 ft Weight 217 lb 2.485 oz BMI 29.4 BP 118/70 Blood Pressure Location Lt brachial Position Sitting Pulse 101 H Pulse Source Pulse Oximeter Pulse Oximetry (%) 97 Oxygen Delivery Method Room Air Intake Visit Reasons: Emphysema Social Scientist Required: No Packing Machine Tender: Packing Machine Tender offered & declined Accompanied by: Self / Same As Patient Allergies No Known Allergies Allergy (Verified 04/30/23 13:34) Medication List - Last Reconciled 04/30/23 by Francy Sung LPN albuterol sulfate 90 mcg/actuation (ProAir HFA) 2 puffs PO Q6H PRN alprazolam 1 mg PO TID PRN dorzolamide 2% 1 drp ophthalmic (eye) BID doxepin 25 mg PO BEDTIME gabapentin 600 mg PO BEDTIME Spiriva Respimat 2.5 mcg/actuation (tiotropium bromide) 2 puffs inhalation QAM 30 days NS HPI Emphysema HPI Details 67-year-old gentleman, former 40 pack-year smoker, quit 2015 undergoing cardiac workup for underlying dyspnea on exertion, noted to have pulmonary emphysema with moderate reversible obstruction and decreased diffusion capacity on pulmonary function testing and was referred for further follow-up. Patient states that he can walk without limitations on level ground, however he gets significant dyspnea with stairs or going up inclines. Patient recently had some bronchitic symptoms in was treated with amoxicillin by his primary care provider with resolution. He denies family history of lung disease. 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 He also complains of intermittent seasonal allergies. After the last office visit patient has been started on Spiriva with improvement in his cough, however only minimal effect on his dyspnea. [facility] Medical History (Updated 03/17/23 @ 14:23 by Michael House MD) BPH (benign prostatic hyperplasia) Anxiety Surgical History Hx of transurethral resection of prostate H/O colonoscopy Hx of cataract surgery Family History Mother No problems noted. Father No problems noted. Social History (Updated 04/30/23 @ 13:36 by Francy Sung LPN) Housing: House Alcohol intake: current Alcohol intake frequency: holidays/special occasions only Patient Tobacco Use Status: Former Tobacco user Tobacco use type: Cigarette Years Smoked: 40 e-Cigarette/Vaping Use: Never Used Second Hand Smoke Exposure: No service: No Current occupational status: retired Cognitive needs: No Hearing needs: No Vision needs: Yes Review of Systems Const Denies daytime sleepiness, Denies excessive sweating, Denies fatigue, Denies fever(s), Denies lethargy, Denies malaise, Denies night sweats, Denies snoring and Denies weight loss Eyes Denies blurry vision and Denies itchy eyes ENT Denies nasal congestion, Denies post nasal drip, Denies sinus pain, Denies sinus pressure and Denies other ( Thrush) Card Denies chest pain, Denies pedal edema, Denies dyspnea, Reports dyspnea on exertion, Denies orthopnea and Denies paroxysmal nocturnal dyspnea Resp Denies cough, Denies hemoptysis, Denies excessive phlegm production, Denies dyspnea, Reports dyspnea on exertion, Denies snoring and Denies wheezing GI Denies abdominal pain and Denies heartburn Musc Denies myalgias, Denies arthralgias and Denies joint swelling Skin/Breast Denies rash Neuro Denies memory loss and Denies seizure-like activity Psych Denies abnormal sleep pattern, Denies anxiety and Denies memory loss Endo Denies excessive sweating, Denies fatigue and Denies heat intolerance Paco/Lymph Denies easy bruising Aller/Immun Denies itchy eyes, Denies seasonal rhinorrhea and Denies wheezing Physical Exam Vital Signs: Last Vital Signs Pulse 101 H 04/30/23 13:30 BP 118/70 04/30/23 13:30 Pulse Ox 97 04/30/23 13:30 Oxygen Delivery Method Room Air 04/30/23 13:30 BMI result Body Mass Index 29.4 Const General: no acute distress and alert Nutritional Appearance: not obese Orientation/consciousness: Other orientation findings ( oriented) HEENT Head: Yes atraumatic Eyes General: appearance normal, both eyes and all related structures Sclerae: sclerae normal EOM: EOMs intact bilaterally Neck Neck: Yes supple Lymphatic: no lymphadenopathy noted Resp Effort & Inspection: normal respiratory effort and no use of accessory muscles Auscultation: clear to auscultation bilaterally Cardio Rate: regular rate Rhythm: regular rhythm Heart sounds: no gallops, no murmurs and no rubs Skin General skin exam: other ( warm) Extrem General: No clubbing, No cyanosis and No edema Assessment & Plan Assessment & Plan (1) Emphysema lung: Code(s): J43.9 - Emphysema, unspecified (2) COPD (chronic obstructive pulmonary disease): Code(s): J44.9 - Chronic obstructive pulmonary disease, unspecified Plan: Improved, but still suboptimally controlled on Spiriva, will change to Stiolto. Continue albuterol MDI. (3) Pulmonary nodule: Code(s): R91.1 - Solitary pulmonary nodule Plan: Underlying 4 mm nodule. Will repeat CT chest in February 2024. Ordered. Orders: Orders CT chest wo IV con 02/29/24 R91.1 - Solitary pulmonary nodule Medications: New Stiolto Respimat 2.5-2.5 mcg/actuation (tiotropium-olodaterol) 2 puffs inhalation DAILY 4 grams 6RF 30 days NS Discontinued Spiriva Respimat 2.5 mcg/actuation (tiotropium bromide) Discontinued Reason: Doctor's Order 2 puffs inhalation QAM 30 days 4 grams 6RF NS Coding Level of Care Code Est Pt Level 4 (37271) Diagnoses Emphysema lung J43.9 COPD (chronic obstructive pulmonary disease) J44.9 Pulmonary nodule R91.1
== END 2023-04-30 13:46 | disposition home or self-care (01) ==
PROVIDERS: PCP Internal Medicine; Visit Provider Internal Medicine Pulmonary Disease
DX: J44.9 Chronic obstructive pulmonary disease, unspecified (principal); R91.1 Solitary pulmonary nodule
CPT/HCPCS: 99214

== ENCOUNTER → 2023-04-30 13:26 | Outpatient (BNVA) | payer MEDICARE, SELFPAY | PROVIDERS: PCP Internal Medicine; Visit Provider Internal Medicine Pulmonary Disease | DX: J43.9 Emphysema, unspecified (principal); J44.9 Chronic obstructive pulmonary disease, unspecified; R91.1 Solitary pulmonary nodule | CPT/HCPCS: 99212 ==

== ENCOUNTER 2023-07-28 13:28 | Outpatient (AMB) | payer MEDICARE, SELFPAY ==
[2023-07-28 13:30] VITALS: BP 142/78; PULSE 97; O2SAT 98; BMI 29.6
--- NOTE | 2023-07-28 13:30 | MHC.OFFVIS ---
Intake Vital Signs 07/28/23 13:30 Height 6 ft Weight 218 lb BMI 29.6 BP 142/78 H Blood Pressure Location Rt brachial Position Sitting Pulse 97 Pulse Source Doppler Pulse Oximetry (%) 98 Oxygen Delivery Method Room Air Intake Visit Reasons: Emphysema Allergies No Known Allergies Allergy (Verified 07/28/23 13:35) HPI Emphysema HPI Details 67-year-old gentleman, former 40 pack-year smoker, quit 2016 undergoing cardiac workup for underlying dyspnea on exertion, noted to have pulmonary emphysema with moderate reversible obstruction and decreased diffusion capacity on pulmonary function testing and was referred for further follow-up. Patient states that he can walk without limitations on level ground, however he gets significant dyspnea with stairs or going up inclines. Patient recently had some bronchitic symptoms in was treated with amoxicillin by his primary care provider with resolution. He denies family history of lung disease. 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 He also complains of intermittent seasonal allergies. After the last office visit patient was changed to Stiolto, however he decided to go back to Spiriva, and then recently again decided to try Stiolto, so far with inadequate therapeutic trial. He denies recent exacerbations. [facility] Medical History (Updated 03/17/23 @ 14:23 by Michael House MD) BPH (benign prostatic hyperplasia) Anxiety Surgical History Hx of transurethral resection of prostate H/O colonoscopy Hx of cataract surgery Family History Mother No problems noted. Father No problems noted. Social History Housing: House Alcohol intake: current Alcohol intake frequency: holidays/special occasions only Patient Tobacco Use Status: Former Tobacco user Tobacco use type: Cigarette Years Smoked: 40 e-Cigarette/Vaping Use: Never Used Second Hand Smoke Exposure: No service: No Current occupational status: retired Cognitive needs: No Hearing needs: No Vision needs: Yes Review of Systems Const Denies daytime sleepiness, Denies excessive sweating, Denies fatigue, Denies fever(s), Denies lethargy, Denies malaise, Denies night sweats, Denies snoring and Denies weight loss Eyes Denies blurry vision and Denies itchy eyes ENT Denies nasal congestion, Denies post nasal drip, Denies sinus pain, Denies sinus pressure and Denies other ( Thrush) Card Denies chest pain, Denies pedal edema, Denies dyspnea, Denies orthopnea and Denies paroxysmal nocturnal dyspnea Resp Denies cough, Denies hemoptysis, Denies excessive phlegm production, Denies dyspnea, Denies snoring and Denies wheezing GI Denies abdominal pain and Denies heartburn Musc Denies myalgias, Denies arthralgias and Denies joint swelling Skin/Breast Denies rash Neuro Denies memory loss and Denies seizure-like activity Psych Denies abnormal sleep pattern, Denies anxiety and Denies memory loss Endo Denies excessive sweating, Denies fatigue and Denies heat intolerance Paco/Lymph Denies easy bruising Aller/Immun Denies itchy eyes, Denies seasonal rhinorrhea and Denies wheezing Physical Exam Vital Signs: Last Vital Signs Pulse 97 07/28/23 13:30 BP 142/78 H 07/28/23 13:30 Pulse Ox 98 07/28/23 13:30 Oxygen Delivery Method Room Air 07/28/23 13:30 BMI result Body Mass Index 29.6 Const General: no acute distress and alert Nutritional Appearance: not obese Orientation/consciousness: Other orientation findings ( oriented) HEENT Head: Yes atraumatic Eyes General: appearance normal, both eyes and all related structures Sclerae: sclerae normal EOM: EOMs intact bilaterally Neck Neck: Yes supple Lymphatic: no lymphadenopathy noted Resp Effort & Inspection: normal respiratory effort and no use of accessory muscles Auscultation: clear to auscultation bilaterally Cardio Rate: regular rate Rhythm: regular rhythm Heart sounds: no gallops, no murmurs and no rubs Skin General skin exam: other ( warm) Extrem General: No clubbing, No cyanosis and No edema Assessment & Plan Assessment & Plan (1) COPD (chronic obstructive pulmonary disease): Code(s): J44.9 - Chronic obstructive pulmonary disease, unspecified Plan: Suboptimal control as patient did not have an adequate therapeutic Stiolto trial. Continue Stiolto and albuterol MDI. (2) Pulmonary nodule: Code(s): R91.1 - Solitary pulmonary nodule Plan: Underlying 4 mm pulmonary nodules. Follow-up CT scans pending for February of 2024. Coding Level of Care Code Est Pt Level 4 (37907) Diagnoses COPD (chronic obstructive pulmonary disease) J44.9 Pulmonary nodule R91.1
== END 2023-07-28 13:47 | disposition home or self-care (01) ==
PROVIDERS: PCP Internal Medicine; Visit Provider Internal Medicine Pulmonary Disease
DX: J44.9 Chronic obstructive pulmonary disease, unspecified (principal); R91.1 Solitary pulmonary nodule
CPT/HCPCS: 99214

== ENCOUNTER → 2023-07-28 13:28 | Outpatient (BNVA) | payer MEDICARE, SELFPAY | PROVIDERS: PCP Internal Medicine; Visit Provider Internal Medicine Pulmonary Disease | DX: J44.9 Chronic obstructive pulmonary disease, unspecified (principal); R91.1 Solitary pulmonary nodule; Z79.899 Other long term (current) drug therapy | CPT/HCPCS: 99212 ==

== ENCOUNTER 2023-08-19 08:30 | Outpatient (AMB) | payer MEDICARE, SELFPAY ==
[2023-08-19 08:34] VITALS: BP 130/74; PULSE 86; O2SAT 98; BMI 29.4
--- NOTE | 2023-08-19 08:34 | A.OFFPC_ITS ---
Vital Signs 08/19/23 08:34 Height 6 ft Weight 217 lb BMI 29.4 BP 130/74 Blood Pressure Location Lt brachial Position Sitting Pulse 86 Pulse Source Pulse Oximeter Pulse Oximetry (%) 98 Oxygen Delivery Method Room Air Intake Visit Reasons: Heart burn/leg pain Straightener Required: No Wound Care Physician: Not Required per policy Accompanied by: Self / Same As Patient Allergies No Known Allergies Allergy (Verified 08/19/23 08:35) Medication List - Last Reconciled 08/19/23 by eJsse Burgos MD albuterol sulfate 90 mcg/actuation (ProAir HFA) 2 puffs PO Q6H PRN alprazolam 1 mg PO TID PRN amoxicillin 250 mg PO Q8H dorzolamide 2% 1 drp ophthalmic (eye) BID doxepin 25 mg PO BEDTIME gabapentin 600 mg PO BEDTIME omeprazole 20 mg PO DAILY Stiolto Respimat 2.5-2.5 mcg/actuation (tiotropium-olodaterol) 2 puffs inhalation DAILY 30 days NS Tobacco use date assessed: 08/19/23 Fall risk assessment: No Falls in past year Last assessed Fall Risk: 08/19/23 Dental Screening Dental Screen Date: 08/19/23 Did you have a dental visit in the last 12 months?: Yes Did you have a dental problem in the last 6 months where you did not have access to dental care?: No Was dental information given to patient?: Patient has dentist HPI Heart burn/leg pain HPI Details GERD symptoms chronically PFSH Medical History (Updated 03/17/23 @ 14:23 by Michael House MD) BPH (benign prostatic hyperplasia) Anxiety Surgical History Hx of transurethral resection of prostate H/O colonoscopy Hx of cataract surgery Family History Mother No problems noted. Father No problems noted. Social History Housing: House Alcohol intake: current Alcohol intake frequency: holidays/special occasions only Patient Tobacco Use Status: Former Tobacco user Tobacco use type: Cigarette Years Smoked: 40 e-Cigarette/Vaping Use: Never Used Second Hand Smoke Exposure: No service: No Current occupational status: retired Cognitive needs: No Hearing needs: No Vision needs: Yes Questionnaire PHQ-9 Over the last 2 weeks, how often have you been bothered by any of the following problems? 1. Little interest or pleasure in doing things: not at all 2. Feeling down, depressed, or hopeless: not at all 3. Trouble falling or staying asleep, or sleeping too much: not at all 4. Feeling tired or having little energy: not at all 5. Poor appetite or overeating: not at all 6. Feeling bad about yourself - or that you are a failure or have let yourself or your family down: not at all 7. Trouble concentrating on things, such as reading the newspaper or watching television: not at all 8. Moving or speaking so slowly that other people could have noticed. Or the opposite - being so fidgety or restless that you have been moving around a lot more than usual: not at all 9. Thoughts that you would be better off or of hurting yourself in some w ay: not at all Total score: 0 Depression Screening Interpretation: Negative Depression Screening Done: Yes 80485 - PHQ-9 Billing: Yes Source: Developed by Drs. Kameron Purcell, Lisseth Marinelli, Bebeto Cole and colleagues, with an educational pancho from [employer]. Thrive Questionnaire Date Thrive assessed: 08/19/23 I am a: Patient What is your living situation today?: I have a steady place to live Within the past 12 months, did the food you bought not last and you didn't have the money to get more?: Never true Within the past 12 months, did you worry whether your food would run out before you got money to buy more?: Never true Do you have trouble paying for medicines?: No Do you have trouble getting transportation to medical appointments?: No Do you have trouble paying your heating and electricity bill?: No Do you have trouble taking care of your child, family member or friend?: No Do you have trouble with day-to-day activities such as bathing, preparing meals, shopping, managing finances, etc.?: No Are you currently unemployed and looking for a job?: No Are you interested in more education?: No Please select the resources that you would like help with: None THRIVE Score: 0 AUDIT C Alcohol Use Questionnaire (AUDIT-C) 1. How often do you have a drink containing alcohol?: Never Total Score: 0 Score Reviewed/Action Taken: Yes HANG-7 AMB Questionnaire HANG-7 Date HANG - 7 assessed: 08/19/23 Feeling nervous, anxious, or on edge: 0 = Not at all Not being able to stop or control worryin = Not at all Worrying too much about different things: 0 = Not at all Trouble relaxin = Not at all Being so restless that it is hard to sit still: 0 = Not at all Becoming easily annoyed or irritable: 0 = Not at all Feeling afraid as if something awful might happen: 0 = Not at all Total HANG-7 score (0-4 normal; 5-9 mild; 10-14 moderate; 15-21 severe): 0 Source: Developed by Drs. Kameron Purcell, Lisseth Marinelli, Bebeto Cole and colleagues, with an educational pancho from [employer]. HANG-7 Assessment Billing HANG-7 Assessment Tool: HANG-7 Assessment 85557 Review of Systems Const Denies chills, Denies headache(s) and Denies weight loss ENT Denies headache(s) Card Denies chest pain, Denies syncope, Denies irregular heart rhythm and Denies dyspnea Resp Denies chest congestion, Denies cough and Denies dyspnea GI Denies abdominal pain, Denies change in stool character, Denies nausea and Denies vomiting Musc Denies deformity and Denies joint swelling Neuro Denies syncope and Denies headache(s) Physical exam (Primary Care) Vital Signs: Last Vital Signs Pulse 86 08/19/23 08:34 BP 130/74 08/19/23 08:34 Pulse Ox 98 08/19/23 08:34 Oxygen Delivery Method Room Air 08/19/23 08:34 BMI result Body Mass Index 29.4 Tobacco/Smoking Status: Tobacco use Status Tobacco use date assessed 08/19/23 08/19/23 08:36 Patient Tobacco Use Status Former Tobacco user 08/19/23 08:36 Tobacco use type Cigarette 08/19/23 08:36 e-Cigarette/Vaping Use Never Used 08/19/23 08:36 PHQ-9: PHQ-9 Score PHQ-9: Total score 0 08/19/23 09:19 Depression Screening Interpretation: Negative Thrive Assessment: Date of Thrive Assessment Date Thrive assessed 08/19/23 08/19/23 08:36 Const General: cooperative, comfortable, no acute distress and alert Neck Neck: Yes no lymphadenopathy Thyroid: Thyroid normal Resp Effort & Inspection: normal respiratory effort Auscultation: clear to auscultation bilaterally Percussion: percussion normal Cardio Jugular venous distension: no JVD Palpation: normal PMI Rate: regular rate Rhythm: regular rhythm Heart sounds: S1 normal heart sound present and S2 normal heart sound present GI Inspection: Yes normal to inspection Palpation (GI): No hepatosplenomegaly present Skin General skin exam: no rashes or lesions noted Extrem General: Yes no clubbing, cyanosis or edema Assessment and Plan Assessment & Plan (1) Chronic GERD: Code(s): K21.9 - Gastro-esophageal reflux disease without esophagitis Plan: rx sent; labs Orders: Orders Lipid Panel Today E78.5 - Hyperlipidemia, unspecified Complete Blood Count Auto Diff Today D64.9 - Anemia, unspecified Comprehensive [place]. Panel Fast Today N28.9 - Disorder of kidney and ureter, unspecified Thyroid Stimulating Hormone Today E03.9 - Hypothyroidism, unspecified Medications: New omeprazole 20 mg PO DAILY 90 tabs 8RF amoxicillin 250 mg PO Q8H 30 caps 0RF Coding Level of Care Code Est Pt Level 3 (32956) Diagnoses Chronic GERD K21.9 Additional Codes HANG-7 Assessment Billing - HANG-7 Assessment Tool: HANG-7 Assessment 71270 ([id number])
== END 2023-08-19 08:59 | disposition home or self-care (01) ==
PROVIDERS: PCP Internal Medicine; Visit Provider Internal Medicine
DX: K21.9 Gastro-esophageal reflux disease without esophagitis (principal)
CPT/HCPCS: 99213

== ENCOUNTER 2023-08-19 09:04 | Outpatient (REF) | payer MEDICARE, SELFPAY ==
[2023-08-19 10:15] LABS: Prostate Specific Antigen 6.79 ng/mL (<0.05-4.0)
== END 2023-08-19 09:05 | disposition home or self-care (01) ==
LOC: HO.LAB 09:04
PROVIDERS: PCP Internal Medicine; Visit Provider Physician Assistant Surgical
DX: N40.1 Benign prostatic hyperplasia with lower urinary tract symptoms (principal); N13.8 Other obstructive and reflux uropathy; N28.9 Disorder of kidney and ureter, unspecified; Z12.5 Encounter for screening for malignant neoplasm of prostate
CPT/HCPCS: 36415; 84153

== ENCOUNTER 2023-09-28 08:14 | Outpatient (REF) | payer MEDICARE, SELFPAY ==
[2023-09-29 11:04] LABS: Free Prostate Spec Ag 1.4 ng/mL; Percent Free Prostate Spec Ag 23 % (calc) (>25); Prostate Specific Ag Total 6.1 ng/mL (< OR = 4.0)
== END 2023-09-28 08:15 | disposition home or self-care (01) ==
LOC: HO.LAB 08:14
PROVIDERS: Urology; PCP Internal Medicine; Visit Provider Internal Medicine
DX: R97.20 Elevated prostate specific antigen [PSA] (principal)
CPT/HCPCS: 36415; 84154

== ENCOUNTER 2023-10-12 09:36 | Outpatient (REF) | payer MEDICARE, SELFPAY ==
[2023-10-12 09:56] LABS: MANUAL DIFF FLAG NO
[2023-10-12 10:55] LABS: Basophils Absolute Auto 0.1 X10*3/uL (0.0-0.2); Eosinophils Absolute Auto 0.8 X10*3/uL (0.0-0.4); Eosinophils Percent Auto 6.7 % (0-4); Hematocrit 29.7 % (42.0-52.0); Hemoglobin 8.3 g/dl (14.0-18.0); Imm Gran Abs Auto 0.04 X10*3/uL (0.00-0.03); Imm Gran Pct Auto 0.3 % (0.0-0.4); Lymphocytes Absolute Auto 1.9 X10*3/uL (1.2-4.9); Lymphocytes Percent Auto 16.3 % (20-40); Mean Corpuscular HGB Conc 27.9 g/dl (31.0-36.0); Mean Corpuscular Hemoglobin 19.9 pg (27.0-33.0); Mean Corpuscular Volume 71.1 fL (80.0-98.0); Mean Platelet Volume 10.8 fL (9.4-12.4); Monocytes Absolute Auto 1.1 X10*3/uL (0.1-1.2); Monocytes Percent Auto 9.1 % (2-11); Neutrophils Absolute Auto 7.8 x10*3/uL (2.0-8.3); Neutrophils Percent Auto 66.6 % (45-73); Platelet Count 307 X10*3/uL (160-400); Red Blood Count 4.18 X10*6/uL (4.60-5.80); Red Cell Distribution Width 15.6 % (11.0-16.0); White Blood Count 11.7 X10*3/uL (4.8-10.8)
[2023-10-12 12:02] LABS: Alanine Aminotransferase 19 U/L (0-40); Albumin Level 4.2 g/dL (3.5-5.0); Alkaline Phosphatase 65 U/L (39-117); Anion Gap 12 (12-20); Aspartate Amino Transferase 17 U/L (5-37); Bilirubin Total 0.4 mg/dL (0.0-1.0); Blood Urea Nitrogen 15 mg/dL (9-16); Calcium 9.6 mg/dL (8.4-10.2); Carbon Dioxide 26 mmol/L (22-29); Chloride 106 mmol/L (96-108); Cholesterol 170 mg/dL (<200); Estimated Glomerular Filt Rate 56; Glucose Fasting 90 mg/dL (60-99); HDL Cholesterol 63 mg/dL (>40); LDL Cholesterol Calculated 96 mg/dL (<100); Potassium 4.1 mmol/L (3.3-5.1); Sodium 140 mmol/L (135-145); Thyroid Stimulating Hormone 1.21 uIU/mL (0.32-4.0); Total Protein 7.3 g/dL (6.5-8.0); Triglycerides 58 mg/dL (<150)
== END 2023-10-12 09:37 | disposition home or self-care (01) ==
LOC: HO.LAB 09:36
PROVIDERS: PCP Internal Medicine; Visit Provider Internal Medicine
DX: E78.5 Hyperlipidemia, unspecified (principal); D64.9 Anemia, unspecified; N28.9 Disorder of kidney and ureter, unspecified; E03.9 Hypothyroidism, unspecified
CPT/HCPCS: 36415; 80053; 80061; 84443; 85025

== ENCOUNTER 2023-10-23 12:57 | Outpatient (AMB) | payer MEDICARE, SELFPAY ==
[2023-10-23 13:04] VITALS: BP 104/62; PULSE 94; O2SAT 95; BMI 29.7
--- NOTE | 2023-10-23 13:04 | A.OFFVIS_ITS ---
Vital Signs 10/23/23 13:04 Height 6 ft Weight 219 lb 5.759 oz BMI 29.7 BP 104/62 Blood Pressure Location Rt brachial Position Sitting Pulse 94 Pulse Source Doppler Pulse Oximetry (%) 95 Oxygen Delivery Method Room Air Intake Visit Reasons: Emphysema Allergies No Known Allergies Allergy (Verified 10/23/23 13:06) HPI HPI Emphysema: Details: 68-year-old gentleman, former 40 pack-year smoker, quit 2016 undergoing cardiac workup for underlying dyspnea on exertion, noted to have pulmonary emphysema with moderate reversible obstruction and decreased diffusion capacity on pulmonary function testing and was referred for further follow-up. Patient states that he can walk without limitations on level ground, however he gets significant dyspnea with stairs or going up inclines. Patient recently had some bronchitic symptoms in was treated with amoxicillin by his primary care provider with resolution. He denies family history of lung disease. 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 He also complains of intermittent seasonal allergies. He has tried Stiolto for greater than 1 months with no significant changes in his symptoms. [facility] Medical History (Updated 10/23/23 @ 13:26 by Michael House MD) BPH (benign prostatic hyperplasia) Anxiety Surgical History Hx of transurethral resection of prostate H/O colonoscopy Hx of cataract surgery Family History Mother No problems noted. Father No problems noted. Social History Housing: House Alcohol intake: current Alcohol intake frequency: holidays/special occasions only Patient Tobacco Use Status: Former Tobacco user Tobacco use type: Cigarette Years Smoked: 40 e-Cigarette/Vaping Use: Never Used Second Hand Smoke Exposure: No service: No Current occupational status: retired Cognitive needs: No Hearing needs: No Vision needs: Yes Review of Systems Const Denies daytime sleepiness, Denies excessive sweating, Denies fatigue, Denies fever(s), Denies lethargy, Denies malaise, Denies night sweats, Denies snoring and Denies weight loss Eyes Denies blurry vision and Denies itchy eyes ENT Denies nasal congestion, Denies post nasal drip, Denies sinus pain, Denies sinus pressure and Denies other ( Thrush) Card Denies chest pain, Denies pedal edema, Denies dyspnea, Reports dyspnea on exer tion, Denies orthopnea and Denies paroxysmal nocturnal dyspnea Resp Denies cough, Denies hemoptysis, Denies excessive phlegm production, Denies dyspnea, Reports dyspnea on exertion, Denies snoring and Denies wheezing GI Denies abdominal pain and Denies heartburn Musc Denies myalgias, Denies arthralgias and Denies joint swelling Skin/Breast Denies rash Neuro Denies memory loss and Denies seizure-like activity Psych Denies abnormal sleep pattern, Denies anxiety and Denies memory loss Endo Denies excessive sweating, Denies fatigue and Denies heat intolerance Paco/Lymph Denies easy bruising Aller/Immun Denies itchy eyes, Denies seasonal rhinorrhea and Denies wheezing Physical Exam Vital Signs: Last Vital Signs Pulse 94 10/23/23 13:04 BP 104/62 10/23/23 13:04 Pulse Ox 95 10/23/23 13:04 Oxygen Delivery Method Room Air 10/23/23 13:04 BMI result Body Mass Index 29.7 Const General: no acute distress and alert Nutritional Appearance: not obese Orientation/consciousness: Other orientation findings ( oriented) HEENT Head: Yes atraumatic Eyes General: appearance normal, both eyes and all related structures Sclerae: sclerae normal EOM: EOMs intact bilaterally Neck Neck: Yes supple Lymphatic: no lymphadenopathy noted Resp Effort & Inspection: normal respiratory effort and no use of accessory muscles Auscultation: clear to auscultation bilaterally Cardio Rate: regular rate Rhythm: regular rhythm Heart sounds: no gallops, no murmurs and no rubs Skin General skin exam: other ( warm) Extrem General: No clubbing, No cyanosis and No edema Assessment & Plan Assessment & Plan (1) COPD (chronic obstructive pulmonary disease): Code(s): J44.9 - Chronic obstructive pulmonary disease, unspecified Category: Medical Plan: Now improvement with Stiolto. Continue albuterol MDI. (2) Pulmonary nodule: Code(s): R91.1 - Solitary pulmonary nodule Category: Medical Plan: Follow-up CT chest is pending for February of 2024. (3) Dyspnea on exertion: Code(s): R06.09 - Other forms of dyspnea Category: Medical Plan: Unclear etiology at this time, will obtain cardiopulmonary exercise test. Orders: Orders CA cardiopulmonary stress test Today R06.09 - Other forms of dyspnea Coding Level of Care Code Est Pt Level 4 (67431) Diagnoses COPD (chronic obstructive pulmonary disease) J44.9 Pulmonary nodule R91.1 Dyspnea on exertion R06.09
== END 2023-10-23 13:19 | disposition home or self-care (01) ==
PROVIDERS: PCP Internal Medicine; Visit Provider Internal Medicine Pulmonary Disease
DX: J44.9 Chronic obstructive pulmonary disease, unspecified (principal); R91.1 Solitary pulmonary nodule; R06.09 Other forms of dyspnea
CPT/HCPCS: 99214

== ENCOUNTER → 2023-10-23 12:57 | Outpatient (BNVA) | payer MEDICARE, SELFPAY | PROVIDERS: PCP Internal Medicine; Visit Provider Internal Medicine Pulmonary Disease | DX: J44.9 Chronic obstructive pulmonary disease, unspecified (principal); R91.1 Solitary pulmonary nodule; R06.09 Other forms of dyspnea | CPT/HCPCS: 99212 ==

== ENCOUNTER 2023-10-23 13:29 | Outpatient (AMB) | payer MEDICARE, SELFPAY ==
--- NOTE | 2023-10-23 13:31 | MHC.PC.OV ---
Vital Signs 10/23/23 13:32 Height 6 ft Weight 218 lb 6 oz BMI 29.6 BP 110/60 Blood Pressure Location Lt brachial Position Sitting Pulse 94 Pulse Source Pulse Oximeter Pulse Oximetry (%) 94 Oxygen Delivery Method Room Air Intake Visit Reasons: Review LABS/Restless legs Intake Note: Patient is here to follow up on lab results and restless legs. Payroll Benefits Administrator Required: No Email Campaign Specialist: Not Required per policy Accompanied by: Self / Same As Patient Allergies No Known Allergies Allergy (Verified 10/23/23 13:32) Medication List - Last Reconciled 10/26/23 by Jesse Burgos MD albuterol sulfate 90 mcg/actuation (ProAir HFA) 2 puffs PO Q6H PRN alprazolam 1 mg PO TID PRN dorzolamide 2% 1 drp ophthalmic (eye) BID doxepin 25 mg PO BEDTIME finasteride 5 mg PO DAILY gabapentin 600 mg PO BEDTIME omeprazole 20 mg PO DAILY Stiolto Respimat 2.5-2.5 mcg/actuation (tiotropium-olodaterol) 2 puffs inhalation DAILY 30 days NS Tobacco use date assessed: 10/23/23 Fall risk assessment: No Falls in past year Last assessed Fall Risk: 10/23/23 Dental Screening Dental Screen Date: 08/19/23 HPI Review LABS/Restless legs HPI Details chronic anxiety insomnia and BPH; sees urology; stabe and compliant [facility] Medical History (Updated 10/26/23 @ 12:06 by Jesse Burgos MD) BPH (benign prostatic hyperplasia) Anxiety Surgical History Hx of transurethral resection of prostate H/O colonoscopy Hx of cataract surgery Family History Mother No problems noted. Father No problems noted. Social History Housing: House Alcohol intake: current Alcohol intake frequency: holidays/special occasions only Patient Tobacco Use Status: Former Tobacco user Tobacco use type: Cigarette Years Smoked: 40 e-Cigarette/Vaping Use: Never Used Second Hand Smoke Exposure: No service: No Current occupational status: retired Cognitive needs: No Hearing needs: No Vision needs: Yes Questionnaire Thrive Questionnaire Date Thrive assessed: 08/19/23 HANG-7 AMB Questionnaire HANG-7 Date HANG - 7 assessed: 08/19/23 Source: Developed by Drs. Kameron Purcell, Lisseth Marinelli, Bebeto Cole and colleagues, with an educational pancho from [employer]. Review of Systems Const Denies chills, Denies headache(s) and Denies weight loss ENT Denies headache(s) Card Denies chest pain, Denies syncope, Denies irregular heart rhythm and Denies dyspnea Resp Denies chest congestion, Denies cough and Denies dyspnea GI Denies abdominal pain, Denies change in stool character, Denies nausea and Denies vomiting Musc Denies deformity and Denies joint swelling Neuro Denies syncope and Denies headache(s) Physical exam (Primary Care) Vital Signs: Last Vital Signs Pulse 94 10/23/23 13:32 BP 110/60 10/23/23 13:32 Pulse Ox 94 10/23/23 13:32 Oxygen Delivery Method Room Air 10/23/23 13:32 BMI result Body Mass Index 29.6 Tobacco/Smoking Status: Tobacco use Status Tobacco use date assessed 10/23/23 10/23/23 13:36 Patient Tobacco Use Status Former Tobacco user 10/23/23 13:36 Tobacco use type Cigarette 10/23/23 13:36 e-Cigarette/Vaping Use Never Used 10/23/23 13:36 Thrive Assessment: Date of Thrive Assessment Date Thrive assessed 08/19/23 10/23/23 13:36 Const General: cooperative, comfortable, no acute distress and alert Neck Neck: Yes no lymphadenopathy Thyroid: Thyroid normal Resp Effort & Inspection: normal respiratory effort Auscultation: clear to auscultation bilaterally Percussion: percussion normal Cardio Jugular venous distension: no JVD Palpation: normal PMI Rate: regular rate Rhythm: regular rhythm Heart sounds: S1 normal heart sound present and S2 normal heart sound present GI Inspection: Yes normal to inspection Palpation (GI): No hepatosplenomegaly present Skin General skin exam: no rashes or lesions noted Extrem General: Yes no clubbing, cyanosis or edema Assessment and Plan Assessment & Plan (1) Anxiety: Code(s): F41.9 - Anxiety disorder, unspecified Plan: stable; same rx (2) Insomnia: Code(s): G47.00 - Insomnia, unspecified Plan: stable; same rx (3) BPH (benign prostatic hyperplasia): Code(s): N40.0 - Benign prostatic hyperplasia without lower urinary tract symptoms Plan: per urology Orders: Orders CT abdomen pelvis w IV con 10/23/23 D50.9 - Iron deficiency anemia, unspecified IRON PROFILE 10/23/23 E61.1 - Iron deficiency Referrals Gastroenterology Referral D50.9 - Iron deficiency anemia, unspecified Coding Level of Care Code Est Pt Level 4 (51525) Diagnoses Anxiety F41.9 Insomnia G47.00 BPH (benign prostatic hyperplasia) N40.0
[2023-10-23 13:32] VITALS: BP 110/60; PULSE 94; O2SAT 94; BMI 29.6
== END 2023-10-23 13:51 | disposition home or self-care (01) ==
PROVIDERS: PCP Internal Medicine; Visit Provider Internal Medicine
DX: F41.9 Anxiety disorder, unspecified (principal); G47.00 Insomnia, unspecified; N40.0 Benign prostatic hyperplasia without lower urinary tract symptoms
CPT/HCPCS: 99214

== ENCOUNTER 2023-11-10 06:07 | Outpatient (REF) | payer MEDICARE, SELFPAY ==
[2023-11-10 08:37] LABS: Iron 22 mcg/dL (45-160); Percent Iron Saturation 7 % (15-50); Total Iron Binding Capacity 307 mcg/dL (228-428); Unsaturated Iron Binding 285 ug/dL
== END 2023-11-10 06:08 | disposition home or self-care (01) ==
LOC: HO.LAB 06:07
PROVIDERS: PCP Internal Medicine; Visit Provider Internal Medicine
DX: E61.1 Iron deficiency (principal)
CPT/HCPCS: 36415; 83540

== ENCOUNTER 2023-12-22 13:52 | Outpatient (REF) | payer MEDICARE, SELFPAY ==
--- NOTE | ~2023-12-22 | CT_ITS ---
EXAMINATION: CT ABDOMEN AND PELVIS WITH CONTRAST CLINICAL INFORMATION: I deficiency anemia. COMPARISON: None available. TECHNIQUE: Multidetector volumetric images were obtained from the superior aspect of the liver through the pubic symphysis following administration 85 mL of Omnipaque 350 intravenous contrast. Sagittal and coronal reformatted images were obtained on the technologist's workstation. Oral contrast: No This CT examination was performed using dose optimization techniques as appropriate, variously including the following: *Automated exposure control *Adjustment of mA and/or kV according to patient size (this includes techniques or standardized protocols for targeted exams where dose is matched to indication/reason for exam; i.e. extremities or head) *Use of iterative reconstruction technique DLP: 616. mGy-cm FINDINGS: LUNG BASES: There are bibasilar foci of minor scar/subsegmental atelectasis. LIVER, GALLBLADDER, AND BILIARY TREE: The liver is normal in size, shape, and attenuation. No focal hepatic lesion or biliary ductal dilatation is present. The gallbladder is unremarkable with no evidence of radiopaque gallstones, gallbladder wall thickening, or obvious pericholecystic inflammatory changes. PANCREAS: Unremarkable. SPLEEN: Unremarkable. ADRENAL GLANDS: Unremarkable. KIDNEYS AND URETERS: The kidneys are normal in size, shape, and attenuation. No hydronephrosis, hydroureter, or calculi seen. There are multiple low-attenuation bilateral simple appearing cysts, some too small for full characterization with CT. These require no imaging follow-up. No perinephric stranding. BLADDER: Unremarkable. A large prostatic impression is seen upon the bladder base. GASTROINTESTINAL TRACT: There is a moderate hiatus hernia. There is marked diverticulosis, without acute diverticulitis. No bowel obstruction, free intraperitoneal air or abscess is seen. There is no focal bowel wall thickening. The vermiform appendix appears normal. ABDOMINAL WALL: There are small fat-containing umbilical and left inguinal hernia defects. A tiny sliding-type right inguinal hernia is seen containing a nonobstructed loop of small bowel. LYMPH NODES: Normal. VASCULAR: There is mild aortoiliac atherosclerotic calcifications. No abdominal aortic aneurysm or dissection is seen. PELVIC VISCERA: The prostate and seminal vesicles are unremarkable. OSSEOUS STRUCTURES: There is multi-level thoracolumbar spondylosis. In particular, there is a 4 mm anterolisthesis at L4-L5, and vacuum disc phenomenon seen L5-S1. No acute or aggressive osseous finding is seen. CT/CT abdomen pelvis w IV con IMPRESSION: 1. There is marked diverticulosis, without acute diverticulitis. 2. There is a moderate hiatus hernia. 3. There are abdominal wall hernia defects, as detailed above. 4. There are degenerative changes of the thoracolumbar spine, most pronounced at L4-L5 and L5-S1. Fleischner guidelines were followed.
[2023-12-22] MEDS: iohexoL 350 MG/ML 100 ML INFUS..BTL 85 ML IV (14:59)
[2023-12-23 07:37] LABS: GFR POC > 60
== END 2023-12-22 13:53 | disposition home or self-care (01) ==
LOC: HO.CT 13:52
PROVIDERS: PCP Internal Medicine; Visit Provider Internal Medicine
DX: D50.9 Iron deficiency anemia, unspecified (principal)
CPT/HCPCS: 74177; 82565; Q9967

== ENCOUNTER 2023-12-25 09:47 | Day surgery (SDC) | payer MEDICARE, SELFPAY ==
--- NOTE | 2023-12-24 10:04 | HO.ANESPROP2 ---
HPI - Anesthesia Eval Consult details Narrative: 68yo M for Upper Endoscopy and Colonoscopy [facility] Active Problems Active Problems: All Active Problems BPH (benign prostatic hyperplasia) (Acute) Insomnia (Acute) Microcytic anemia (Acute) Dyspnea on exertion (Acute) Pulmonary nodule (Acute) COPD (chronic obstructive pulmonary disease) (Acute) Emphysema lung (Acute) Dyspnea (Acute) Abnormal cardiovascular stress test (Acute) Rash (Acute) SOB (shortness of breath) (Acute) Precordial chest pain (Acute) Skin infection (Acute) Glaucoma (Acute) Arthritis (Acute) Chronic GERD (Acute) Physical exam (Acute) Allergic reaction (Acute) Cellulitis and abscess of left leg (Acute) Preop exam for internal medicine (Acute) Anxiety (Acute) Past Medical History Medical History BPH (benign prostatic hyperplasia) Anxiety Family History Family History Mother No problems noted. Father No problems noted. Family history of problems with anesthesia: No Surgical History Surgical History Hx of transurethral resection of prostate H/O colonoscopy Hx of cataract surgery History of Problems with Anesthesia: No Social History Social History Housing: House Alcohol intake: current Alcohol intake frequency: holidays/special occasions only Patient Tobacco Use Status: Former Tobacco user Tobacco use type: Cigarette Years Smoked: 40 e-Cigarette/Vaping Use: Never Used Second Hand Smoke Exposure: No service: No Current occupational status: retired Cognitive needs: No Hearing needs: No Vision needs: Yes Meds Allergies Allergy/AdvReac Type Severity Reaction Status Date / Time No Known Allergies Allergy Verified 12/28/23 10:55 Home Medications ?Medication ?Instructions ?Recorded ?Confirmed ?Last Taken ?Type gabapentin 600 mg tablet 600 mg PO BEDTIME 12/04/21 12/28/23 Unknown History dorzolamide 2 % eye drops 1 drp ophthalmic (eye) BID 09/10/22 12/28/23 Unknown History finasteride 5 mg tablet 5 mg PO DAILY 10/23/23 12/28/23 Unknown History Exam Pertinent Lab Results Pertinent Lab Results: Laboratory Tests 10/12/23 09:54 WBC 11.7 H Hgb 8.3 L D Hct 29.7 L D Plt Count 307 Sodium 140 Potassium 4.1 Chloride 106 Carbon Dioxide 26 BUN 15 Creatinine 1.27 Narrative Narrative: ECHO 2022 Conclusions: - The left ventricular systolic function is normal. The visually estimated ejection fraction is between 60-65%. - No obvious valvular pathology seen on this study. Exercise Stress 2022 Protocol: ERMA Max HR: 139 BPM 91% of Pred: 152 BPM Max BP: 152/080 mmHG Max Work Load: 5.4 METS Exercise stress test with exercise 3 min 44 sec of Erma protocol, achieving 90% MPHR, 5.4 METs, with report of sob and dizziness with request to stop as he was starting to get panicky , no chest discomfort, with isolated PAC, with normotensive response to exercise, without EKG changes meeting criteria for ischemia. In recovery his symptoms quickly resolved. Test reviewed with Dr Roach Assessment and Plan Assessment Anesthesia Assessment: Chart Reviewed Final Anesthetic Review Family History of Problems with Anesthesia: No History of Problems with Anesthesia: No
[2023-12-25 10:00] VITALS: BMI 28.2
[2023-12-25] MEDS: Lactated Ringers 1,000 ML 100 ML IVCONT (10:08)
[2023-12-25 10:20] VITALS: BP 131/89; PULSE 78; RESP 18; TEMP 36.8; O2SAT 100
--- NOTE | 2023-12-25 10:25 | P.CONAN_ITS ---
[facility] Active Problems Active Problems: All Active Problems BPH (benign prostatic hyperplasia) (Acute) Insomnia (Acute) Microcytic anemia (Acute) Dyspnea on exertion (Acute) Pulmonary nodule (Acute) COPD (chronic obstructive pulmonary disease) (Acute) Emphysema lung (Acute) Dyspnea (Acute) Abnormal cardiovascular stress test (Acute) Rash (Acute) SOB (shortness of breath) (Acute) Precordial chest pain (Acute) Skin infection (Acute) Glaucoma (Acute) Arthritis (Acute) Chronic GERD (Acute) Physical exam (Acute) Allergic reaction (Acute) Cellulitis and abscess of left leg (Acute) Preop exam for internal medicine (Acute) Anxiety (Acute) Past Medical History Medical History BPH (benign prostatic hyperplasia) Anxiety Functional capacity: independent ambulation Family History Family History Mother No problems noted. Father No problems noted. Family history of problems with anesthesia: No Surgical History Surgical History Hx of transurethral resection of prostate H/O colonoscopy Hx of cataract surgery History of Problems with Anesthesia: No Social History Social History Housing: House Alcohol intake: current Alcohol intake frequency: holidays/special occasions only Patient Tobacco Use Status: Former Tobacco user Tobacco use type: Cigarette Years Smoked: 40 e-Cigarette/Vaping Use: Never Used Second Hand Smoke Exposure: No Are you DNR?: No Advance Directives: No Advance Directives Information Provided: Yes Nutrition Risks: No Nutritional Risk service: No Current occupational status: retired Cognitive needs: No Hearing needs: No Vision needs: Yes Meds Allergies Allergy/AdvReac Type Severity Reaction Status Date / Time No Known Allergies Allergy Verified 12/25/23 10:03 Active Medications: Current Medications Lactated Ringer's (Lr) 1,000 mls @ 100 mls/hr IVCONT .Q10H CADEN Last Admin: 12/25/23 10:08 Dose: 100 mls/hr Home Medications ?Medication ?Instructions ?Recorded ?Confirmed ?Last Taken ?Type gabapentin 600 mg tablet 600 mg PO BEDTIME 12/04/21 12/25/23 Unknown History dorzolamide 2 % eye drops 1 drp ophthalmic (eye) BID 09/10/22 12/25/23 Unknown History finasteride 5 mg tablet 5 mg PO DAILY 10/23/23 12/25/23 Unknown History Exam Height,Weight and Vital Signs: Height 6 ft Weight 94.166 kg Last Vital Signs Temp 98.2 F 12/25/23 10:20 Pulse 78 12/25/23 10:20 Resp 18 12/25/23 10:20 BP 131/89 12/25/23 10:20 Pulse Ox 100 12/25/23 10:20 O2 Del Method Room Air 12/25/23 10:20 Airway Mallampati Class: II TM Dist: >3cm Neck ROM: Full Heart: RRR Lungs: CTA Assessment and Plan Assessment Anesthesia Assessment: Anesthesia Plan Discussed Final Anesthetic Review Family History of Problems with Anesthesia: No History of Problems with Anesthesia: No NPO: Yes ASA Class: III Final Preanesthetic Review: Meds/Allgs Chart Reviewed, Consent Obtained/Reviewed and Anes Risks/Benef Reviewed Patient Risk: Low Procedure Risk: Low Anesthetic Plan Anesthetic Plan: MAC: Disposition: Standard PACU
--- NOTE | 2023-12-25 10:30 | P.CONAN_ITS ---
[facility] Active Problems Active Problems: All Active Problems BPH (benign prostatic hyperplasia) (Acute) Insomnia (Acute) Microcytic anemia (Acute) Dyspnea on exertion (Acute) Pulmonary nodule (Acute) COPD (chronic obstructive pulmonary disease) (Acute) Emphysema lung (Acute) Dyspnea (Acute) Abnormal cardiovascular stress test (Acute) Rash (Acute) SOB (shortness of breath) (Acute) Precordial chest pain (Acute) Skin infection (Acute) Glaucoma (Acute) Arthritis (Acute) Chronic GERD (Acute) Physical exam (Acute) Allergic reaction (Acute) Cellulitis and abscess of left leg (Acute) Preop exam for internal medicine (Acute) Anxiety (Acute) Past Medical History Medical History BPH (benign prostatic hyperplasia) Anxiety Functional capacity: independent ambulation Family History Family History Mother No problems noted. Father No problems noted. Family history of problems with anesthesia: No Surgical History Surgical History Hx of transurethral resection of prostate H/O colonoscopy Hx of cataract surgery History of Problems with Anesthesia: No Social History Social History Housing: House Alcohol intake: current Alcohol intake frequency: holidays/special occasions only Patient Tobacco Use Status: Former Tobacco user Tobacco use type: Cigarette Years Smoked: 40 e-Cigarette/Vaping Use: Never Used Second Hand Smoke Exposure: No service: No Current occupational status: retired Cognitive needs: No Hearing needs: No Vision needs: Yes Meds Allergies Allergy/AdvReac Type Severity Reaction Status Date / Time No Known Allergies Allergy Verified 12/25/23 10:03 Active Medications: Current Medications Lactated Ringer's (Lr) 1,000 mls @ 100 mls/hr IVCONT .Q10H CADEN Last Admin: 12/25/23 10:08 Dose: 100 mls/hr Home Medications ?Medication ?Instructions ?Recorded ?Confirmed ?Last Taken ?Type gabapentin 600 mg tablet 600 mg PO BEDTIME 12/04/21 12/25/23 Unknown History dorzolamide 2 % eye drops 1 drp ophthalmic (eye) BID 09/10/22 12/25/23 Unknown History finasteride 5 mg tablet 5 mg PO DAILY 10/23/23 12/25/23 Unknown History Exam Height,Weight and Vital Signs: Height 6 ft Weight 94.166 kg Last Vital Signs Temp 98.2 F 12/25/23 10:20 Pulse 78 12/25/23 10:20 Resp 18 12/25/23 10:20 BP 131/89 12/25/23 10:20 Pulse Ox 100 12/25/23 10:20 O2 Del Method Room Air 12/25/23 10:20 Airway Mallampati Class: II TM Dist: >3cm Neck ROM: Full Heart: RRR Lungs: CTA Assessment and Plan Assessment Anesthesia Assessment: Anesthesia Plan Discussed Final Anesthetic Review Family History of Problems with Anesthesia: No History of Problems with Anesthesia: No NPO: Yes ASA Class: III Final Preanesthetic Review: Meds/Allgs Chart Reviewed, Consent Obtained/Reviewed and Anes Risks/Benef Reviewed Patient Risk: Low Procedure Risk: Low Anesthetic Plan Anesthetic Plan: MAC: Disposition: Standard PACU
--- NOTE | 2023-12-25 10:43 | MHC.SHP ---
Pre-Procedural Eval Section A - 24 Hr Update-Section A only Date of Service: 12/25/23 Section B - Complete if H&P > 30 days Chief Complaint: screening,anemia,gerd, Details of Present Illness: see H&P no changes Relevant Family History (Specify if Yes): No Relevant Social History: None Present Medications: see Short Stay Collaborative assessment Medical History: No relevant PMH History of Previous Operations: Relevant previous surgery/procedure and date(s) Allergies: Allergies Allergy/AdvReac Type Severity Reaction Status Date / Time No Known Allergies Allergy Verified 12/25/23 10:03 Review of Systems Sugical H&P ROS: Negative: Constitution, Cardiovascular, Respiratory, Neurological, Psychiatric, Hem-Onc, Allergic/Immunologic, Gastrointestinal, Genitourinary, Musculoskeletal, Integumentary, Endocrine and Eyes/Ears/Nose/Throat Exam Surgical H&P Exam: Normal: HEENT, Normal: Heart, Normal: Lungs, Normal: Extremities, Normal: Abdomen, Normal: Skin and Normal: Neurological Plan Diagnosis/Plan: Unchanged I have reviewed the history and physical and performed a pertinent physical examination on my patient. No changes have occurred unless specified. Time Spent With Patient Time: Total time managing care of this patient today ____ minutes.
[2023-12-25 11:30] VITALS: BP 118/81; PULSE 78; RESP 16; TEMP 36.3; O2SAT 95
--- NOTE | 2023-12-25 11:36 | PM.OP ---
Brief Operative Note Date of Service: 12/25/23 Pre-op diagnosis: KRISSY Post-op diagnosis: same Procedure: EGD colon Surgeon: Abdoulaye Min MD Anesthesia: MAC Was an Voting Machine Mechanic used for this Procedure?: No Estimated blood loss (mL): 2 Pathology: other Condition: stable Disposition: PACU
[2023-12-25 11:46] VITALS: BP 136/79; PULSE 89; RESP 18; TEMP 36.1; O2SAT 96
--- NOTE | 2023-12-25 11:51 | OP_ITS ---
DATE OF SERVICE: 12/25/2023 SURGEON: Abdoulaye Min MD INDICATIONS: Iron deficiency anemia. PREOPERATIVE DIAGNOSIS: POSTOPERATIVE DIAGNOSIS: PROCEDURE PERFORMED: Upper endoscopy with biopsy, colonoscopy to the cecum with snare polypectomy. ESTIMATED BLOOD LOSS: COMPLICATIONS: ANESTHESIA: Monitored anesthesia care. ASSISTANTS: SPECIMENS: DESCRIPTION OF PROCEDURE: A history and physical was performed. The risks and benefits of the procedure were explained to the patient and informed consent was obtained. The patient was placed in the left lateral decubitus position. The Olympus video gastroscope was introduced into the esophagus, stomach, and duodenum. Examination was performed and the scope was removed. He was repositioned for colonoscopy. A digital rectal exam was performed and was found to be normal. The Olympus pediatric video colonoscope was introduced into the rectum and advanced to the cecum. The cecum was identified by transillumination, palpation, and identification of ileocecal valve. Examination was performed and the scope was removed. He tolerated both procedures well and was returned to recovery area in stable condition. FINDINGS: Upper endoscopy. 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 Biopsies were obtained in all 4 quadrants every 2 cm. There were no raised lesions or ulcerated areas. There was a small hiatal hernia. Stomach: The stomach showed no evidence of masses, ulcers, or polyps. Antral biopsies were obtained to evaluate for H pylori. Duodenum: The bulb and 2nd portion were normal. Duodenal biopsies were obtained because of his history of iron deficiency anemia. Colonoscopy: The terminal ileum was not examined. The visualized colonic mucosa was normal. There was a large amount of liquid and some formed stool left, which limited the sensitivity examination for detection of small polyps. This was washed and suctioned as best possible. There was moderate to extensive diverticulosis involving left colon and sigmoid with luminal narrowing between 20 and 30 cm. The mucosa appeared normal without evidence of diverticulitis or mass lesion. The sigmoid will also somewhat tortuous. In the rectum, was an 8 mm polyp, which was removed with hot snare and recovered via suction. No other polyps were identified. Retroflexed examination showed large internal hemorrhoids. IMPRESSION: 1. Preston esophagus. 2. Hiatal hernia. 3. Colon polyp. 4. Iron deficiency anemia. RECOMMENDATION: Follow up the biopsy results. MD JOSE ALBERTO Paul/LAWANDA / [phone]
--- NOTE | 2023-12-25 12:15 | HO.POSTANES ---
Post Anesthesia Evaluation Post Anesthesia Evaluation Date of Service: 12/25/23 Vital Signs: Vital Signs Temp Pulse Resp BP Pulse Ox O2 Del Method 12/25/23 11:46 97.0 F 89 18 136/79 96 Room Air 12/25/23 11:30 97.4 F 78 16 118/81 95 Room Air 12/25/23 10:20 98.2 F 78 18 131/89 100 Room Air Anesthesia: Monitored Mental Status: Awake Pain Control: Satisfactory Nausea/Vomiting: None Hydration: Adequate Anesthesia-Related Issues: No Anes. Related Issues
== END 2023-12-25 12:45 | disposition home or self-care (01) ==
PROVIDERS: PCP Internal Medicine; Visit Provider Internal Medicine Gastroenterology
PROC: (CPT 45385; principal; 2023-12-25 11:30)
DX: Z12.11 Encounter for screening for malignant neoplasm of colon (principal); K62.1 Rectal polyp; K57.30 Diverticulosis of large intestine without perforation or abscess without bleeding; K64.8 Other hemorrhoids; K21.9 Gastro-esophageal reflux disease without esophagitis; D50.9 Iron deficiency anemia, unspecified; K22.70 Barrett's esophagus without dysplasia; K44.9 Diaphragmatic hernia without obstruction or gangrene; N40.0 Benign prostatic hyperplasia without lower urinary tract symptoms; G25.81 Restless legs syndrome; G47.00 Insomnia, unspecified; F41.0 Panic disorder [episodic paroxysmal anxiety]; Z79.899 Other long term (current) drug therapy
CPT/HCPCS: 45385; 43239; 88305; 88313; 88342; J2704

== ENCOUNTER 2023-12-28 10:53 | Outpatient (AMB) | payer MEDICARE, SELFPAY ==
[2023-12-28 10:55] VITALS: BP 130/82; PULSE 100; O2SAT 97; BMI 28.3
--- NOTE | 2023-12-28 10:55 | MHC.PC.OV ---
Vital Signs 12/28/23 10:55 Height 6 ft Weight 209 lb BMI 28.3 BP 130/82 Blood Pressure Location Lt brachial Position Sitting Pulse 100 Pulse Source Pulse Oximeter Pulse Oximetry (%) 97 Oxygen Delivery Method Room Air Intake Visit Reasons: Annual Exam House Principal Required: No Cut Roll Machine Operator: Not Required per policy Accompanied by: Self / Same As Patient Allergies No Known Allergies Allergy (Verified 12/28/23 10:55) Medication List - Last Reconciled 12/28/23 by Jesse Burgos MD alprazolam 1 mg PO TID PRN cyclobenzaprine 10 mg PO Q8H PRN dorzolamide 2% 1 drp ophthalmic (eye) BID doxepin 50 mg PO BEDTIME finasteride 5 mg PO DAILY gabapentin 600 mg PO BEDTIME omeprazole 20 mg PO DAILY Tobacco use date assessed: 10/23/23 Fall risk assessment: No Falls in past year Last assessed Fall Risk: 12/28/23 Dental Screening Dental Screen Date: 08/19/23 HPI Annual Exam HPI Details gerd on rx; doing well PFSH Medical History BPH (benign prostatic hyperplasia) Anxiety Surgical History Hx of transurethral resection of prostate H/O colonoscopy Hx of cataract surgery Family History Mother No problems noted. Father No problems noted. Social History Housing: House Alcohol intake: current Alcohol intake frequency: holidays/special occasions only Patient Tobacco Use Status: Former Tobacco user Tobacco use type: Cigarette Years Smoked: 40 e-Cigarette/Vaping Use: Never Used Second Hand Smoke Exposure: No service: No Current occupational status: retired Cognitive needs: No Hearing needs: No Vision needs: Yes Questionnaire Thrive Questionnaire Date Thrive assessed: 08/19/23 HANG-7 AMB Questionnaire HANG-7 Date HANG - 7 assessed: 08/19/23 Source: Developed by Drs. Kameron Purcell, Lisseth Marinelli, Bebeto Cole and colleagues, with an educational pancho from [employer]. Review of Systems Const Denies chills, Denies fatigue, Denies headache(s) and Denies weight loss Eyes Denies change in vision, Denies diplopia and Denies eye pain ENT Denies vertigo, Denies dizziness, Denies headache(s) and Denies nasal discharge Card Denies chest pain, Denies rapid heart rate and Denies dyspnea on exertion Resp Denies chest congestion, Denies cough, Denies pain with cough and Denies dyspnea on exertion GI Denies abdominal pain, Denies hematochezia and Denies change in bowel habits Musc Denies myalgias, Denies arthralgias and Denies joint swelling Skin/Breast Denies lesions and Denies unusual bruising Neuro Denies vertigo, Denies dizziness, Denies headache(s) and Denies focal weakness Endo Denies fatigue Physical exam (Primary Care) Vital Signs: Last Vital Signs Pulse 100 12/28/23 10:55 BP 130/82 12/28/23 10:55 Pulse Ox 97 12/28/23 10:55 Oxygen Delivery Method Room Air 12/28/23 10:55 BMI result Body Mass Index 28.3 Tobacco/Smoking Status: Tobacco use Status Tobacco use date assessed 10/23/23 12/28/23 10:55 Patient Tobacco Use Status Former Tobacco user 12/28/23 10:55 Tobacco use type Cigarette 12/28/23 10:55 e-Cigarette/Vaping Use Never Used 12/28/23 10:55 Thrive Assessment: Date of Thrive Assessment Date Thrive assessed 08/19/23 12/28/23 10:55 Const General: cooperative, healthy appearing and no acute distress Orientation/consciousness: oriented to person, oriented to place and oriented to time [facility] Head: Yes normal to inspection, Yes normocephalic and Yes atraumatic Mouth: Normal oral and palatal mucosa present and tongue normal Throat: Yes posterior oropharynx normal and Yes uvula midline Eyes General: appearance normal, both eyes and all related structures Neck Neck: Yes normal visual inspection, Yes full ROM and Yes no lymphadenopathy Thyroid: Thyroid normal Carotids: normal carotid upstroke Chest Chest palpation & inspection: normal inspection of the chest Resp Effort & Inspection: normal respiratory effort and able to speak in complete sentences Auscultation: clear to auscultation bilaterally Cardio Jugular venous distension: no JVD Palpation: normal PMI Rate: regular rate Rhythm: regular rhythm Heart sounds: S1 normal heart sound present and S2 normal heart sound present GI Inspection: Yes normal to inspection Palpation (GI): Soft to palpation and No hepatosplenomegaly present Auscultation: normal bowel sounds General: Yes no CVA tenderness Back/Spine/Pelvis Back: no CVA tenderness Skin General skin exam: no rashes or lesions noted Neuro General: oriented to person, oriented to place and oriented to time Extrem General: Yes normal to inspection and Yes full ROM Assessment and Plan Assessment & Plan (1) Physical exam: Code(s): Z00.00 - Encounter for general adult medical examination without abnormal findings (2) Chronic GERD: Code(s): K21.9 - Gastro-esophageal reflux disease without esophagitis Plan: same rx Orders: Orders IRON PROFILE Today E61.1 - Iron deficiency Complete Blood Count Auto Diff Today Z13.0 - Encounter for screening for diseases of the blood and blood-forming organs and certain disorders involving the immune mechanism Prostate Specific Antigen Scr Today Z00.00 - Encounter for general adult medical examination without abnormal findings Medications: New doxepin 50 mg PO BEDTIME 30 caps 3RF cyclobenzaprine 10 mg PO Q8H PRN 30 tabs 2RF muscle spasm Discontinued doxepin Discontinued Reason: None 25 mg PO BEDTIME 90 caps 3RF Coding Level of Care Code Est Pt Prev Care >65y(54796) Diagnoses Physical exam Z00.00 Chronic GERD K21.9
== END 2023-12-28 11:13 | disposition home or self-care (01) ==
PROVIDERS: PCP Internal Medicine; Visit Provider Internal Medicine
DX: Z00.00 Encounter for general adult medical examination without abnormal findings (principal); K21.9 Gastro-esophageal reflux disease without esophagitis
CPT/HCPCS: 99397

== ENCOUNTER 2023-12-28 11:20 | Outpatient (REF) | payer MEDICARE, SELFPAY ==
[2023-12-28 11:37] LABS: MANUAL DIFF FLAG NO
[2023-12-28 12:06] LABS: Basophils Absolute Auto 0.1 X10*3/uL (0.0-0.2); Basophils Percent Auto 1.1 % (0-2); Eosinophils Absolute Auto 0.8 X10*3/uL (0.0-0.4); Eosinophils Percent Auto 7.1 % (0-4); Hematocrit 40.4 % (42.0-52.0); Hemoglobin 11.9 g/dl (14.0-18.0); Imm Gran Abs Auto 0.04 X10*3/uL (0.00-0.03); Imm Gran Pct Auto 0.4 % (0.0-0.4); Lymphocytes Absolute Auto 1.2 X10*3/uL (1.2-4.9); Lymphocytes Percent Auto 10.9 % (20-40); Mean Corpuscular HGB Conc 29.5 g/dl (31.0-36.0); Mean Corpuscular Hemoglobin 23.8 pg (27.0-33.0); Mean Corpuscular Volume 80.6 fL (80.0-98.0); Mean Platelet Volume 10.7 fL (9.4-12.4); Monocytes Absolute Auto 0.9 X10*3/uL (0.1-1.2); Monocytes Percent Auto 7.9 % (2-11); Neutrophils Percent Auto 72.6 % (45-73); Platelet Count 220 X10*3/uL (160-400); Red Blood Count 5.01 X10*6/uL (4.60-5.80); Red Cell Distribution Width 19.8 % (11.0-16.0)
[2023-12-28 12:38] LABS: Iron 102 mcg/dL (45-160); Percent Iron Saturation 38 % (15-50); Total Iron Binding Capacity 265 mcg/dL (228-428); Unsaturated Iron Binding 163 ug/dL
[2023-12-28 12:56] LABS: Prostate Specific Antigen Scr 4.77 ng/mL (<0.05-4.0)
== END 2023-12-28 11:21 | disposition home or self-care (01) ==
LOC: HO.LAB 11:20
PROVIDERS: PCP Internal Medicine; Visit Provider Internal Medicine
DX: Z00.00 Encounter for general adult medical examination without abnormal findings (principal); Z13.0 Encounter for screening for diseases of the blood and blood-forming organs and certain disorders involving the immune mechanism; E61.1 Iron deficiency; Z12.5 Encounter for screening for malignant neoplasm of prostate
CPT/HCPCS: 36415; 83540; 84153; 85025

== ENCOUNTER 2024-01-07 08:30 | Outpatient (AMB) | payer MEDICARE, SELFPAY ==
[2024-01-07 08:38] VITALS: BP 128/80; PULSE 76; TEMP 36.7; O2SAT 98; BMI 28.3
--- NOTE | 2024-01-07 08:38 | MHC.OFFWIV ---
Intake Vital Signs 01/07/24 08:38 Height 6 ft Weight 209 lb BMI 28.3 BP 128/80 Blood Pressure Location Rt brachial Position Sitting Pulse 76 Pulse Source Pulse Oximeter Temp 98.1 F Temp Source Oral Pulse Oximetry (%) 98 Intake Visit Reasons: EP rash lower RT side Intake Note: pt is here for rash on lower right side Patient Tobacco Use Status: Former Tobacco user Allergies No Known Allergies Allergy (Verified 01/07/24 08:38) Do you need a note to return to daycare/school/sports/work: No HPI HPI Comments History of Present Illness Details 68 y/o male patient who presents to walk in clinic with c/o Rash on his right lower flank region. Describes the rash as very itchy and dry skin. [facility] Medical History BPH (benign prostatic hyperplasia) Anxiety Surgical History Hx of transurethral resection of prostate H/O colonoscopy Hx of cataract surgery Family History Mother No problems noted. Father No problems noted. Social History Housing: House Alcohol intake: current Alcohol intake frequency: holidays/special occasions only Patient Tobacco Use Status: Former Tobacco user Tobacco use type: Cigarette Years Smoked: 40 e-Cigarette/Vaping Use: Never Used Second Hand Smoke Exposure: No service: No Current occupational status: retired Cognitive needs: No Hearing needs: No Vision needs: Yes Review of Systems Const All systems reviewed & are unremarkable except as noted in HPI and below Physical Exam Vital Signs: Last Vital Signs Temp 98.1 F 01/07/24 08:38 Pulse 76 01/07/24 08:38 BP 128/80 01/07/24 08:38 Pulse Ox 98 01/07/24 08:38 BMI result Body Mass Index 28.3 Const General: comfortable and no acute distress Nutritional Appearance: overweight Orientation/consciousness: patient oriented x3 Skin Other: A group of red hives dry skin right lower back/flank Rashes: rashes noted (right lower back/flank) Neuro General: patient oriented x3, gait normal and moves all extremities Psych Speech and movement: Normal speech and movement present Assessment & Plan Assessment & Plan (1) Rash: Code(s): R21 - Rash and other nonspecific skin eruption Plan: Apply medication as directed Take Prednisone as prescribed. Moisturize skin BID Medications: New prednisone 50 mg PO DAILY 5 days 5 tabs 0RF R21 - Rash and other nonspecific skin eruption triamcinolone acetonide 0.1% 1 appl topical BID 10 days 15 grams 0RF R21 - Rash and other nonspecific skin eruption Coding Level of Care Code Est Pt Level 3 (97879) Diagnoses Rash R21 Time Spent (min) 15
== END 2024-01-07 09:15 | disposition home or self-care (01) ==
PROVIDERS: PCP Internal Medicine; Visit Provider Nurse Practitioner Family
DX: R21 Rash and other nonspecific skin eruption (principal)
CPT/HCPCS: 99213

== ENCOUNTER 2024-03-01 12:14 | Outpatient (REF) | payer MEDICARE, SELFPAY ==
--- NOTE | ~2024-03-01 | CT_ITS ---
EXAMINATION: CT CHEST WITHOUT CONTRAST CLINICAL INFORMATION: Solitary pulmonary nodule. COMPARISON: CT dated March 03, 2023. TECHNIQUE: Multidetector volumetric CT imaging of the chest was done. Axial MIP volume rendering provided. Sagittal and coronal reformatted images were obtained. This CT examination was performed using dose optimization techniques as appropriate, variously including the following: *Automated exposure control *Adjustment of mA and/or kV according to patient size (this includes techniques or standardized protocols for targeted exams where dose is matched to indication/reason for exam; i.e. extremities or head) *Use of iterative reconstruction technique DLP: 210 mGy-cm FINDINGS: Submitted for interpretation on May 12, 2024. LUNGS: 4 mm noncalcified pulmonary nodule, right middle lobe. Subsegmental atelectasis versus scarring in the lung bases and lingula. 1 mm calcified pulmonary nodule, right lung base. 3 mm calcified pulmonary nodule, left upper lobe. No bronchiectasis. No honeycombing. Centrilobular emphysematous changes upper lobes. No consolidation. Respiratory airways patent. MEDIASTINUM: Hilar hernia, moderate sized. No lymphadenopathy, mediastinum or perihilar. No pericardial effusion. No thoracic aortic aneurysm. Calcified plaque in the thoracic aortic arch and the proximal segment of the left subclavian artery. CORONARY ARTERY CALCIFICATION: No. PLEURA: No pleural effusion. No pneumothorax. AXILLA: No lymphadenopathy. UPPER ABDOMEN: 14 mm exophytic fluid density in the anterior midportion/upper pole junction left kidney. Of tissue fullness both adrenal glands. Numerous diverticula in the transverse colon. OSSEOUS STRUCTURES: Multilevel spondylosis without acute fracture or listhesis. Sternum is intact. S-shaped curvature of the thoracic spine. No acute rib fracture. CT/CT chest wo IV con IMPRESSION: 4 mm noncalcified pulmonary nodule, right middle lobe. Stable. Granulomata, right lower lobe and left upper lobe. Hiatal hernia, moderate size. Diverticular disease, transverse colon. 14 mm exophytic cystic lesion, left kidney. Fleischner guidelines were followed. Electronically signed by: Manjit Fuller MD 05/12/2024 02:57 PM EST
== END 2024-03-01 12:15 | disposition home or self-care (01) ==
LOC: HO.CT 12:14
PROVIDERS: PCP Internal Medicine; Visit Provider Internal Medicine Pulmonary Disease
DX: R91.1 Solitary pulmonary nodule (principal)
CPT/HCPCS: 71250

== ENCOUNTER → 2024-03-01 12:16 | Outpatient (BNV) | payer MEDICARE, SELFPAY | PROVIDERS: PCP Internal Medicine; Visit Provider Radiology Diagnostic Radiology | DX: R91.1 Solitary pulmonary nodule (principal) | CPT/HCPCS: 71250 ==

== ENCOUNTER 2024-05-12 13:32 | Outpatient (AMB) | payer MEDICARE, SELFPAY ==
[2024-05-12 13:33] VITALS: BP 132/72; PULSE 99; O2SAT 95; BMI 29.4
--- NOTE | 2024-05-12 13:33 | A.OFFVIS_ITS ---
Vital Signs 05/12/24 13:33 Height 6 ft Weight 217 lb 2.485 oz BMI 29.4 BP 132/72 Blood Pressure Location Lt brachial Position Sitting Pulse 99 Pulse Source Doppler Pulse Oximetry (%) 95 Oxygen Delivery Method Room Air Intake Visit Reasons: Emphysema/CT Chest Follow Up Allergies No Known Allergies Allergy (Verified 01/07/24 08:38) HPI HPI Emphysema/CT Chest Follow Up: Details: 68-year-old gentleman, former 40 pack-year smoker, quit 2016, with unrevealing cardiac workup for underlying dyspnea on exertion, noted to have pulmonary emphysema with moderate reversible obstruction and decreased diffusion capacity on pulmonary function testing. Patient was tried on Stiolto and albuterol MDI w ith no changes in his symptoms. He attempted cardiopulmonary exercise test, but was not able to tolerate secondary to panic attack. Patient states that he also was diagnosed with anemia and with its treatment his dyspnea has improved. [facility] Medical History BPH (benign prostatic hyperplasia) Anxiety Surgical History Hx of transurethral resection of prostate H/O colonoscopy Hx of cataract surgery Family History Mother No problems noted. Father No problems noted. Social History Housing: House Alcohol intake: current Alcohol intake frequency: holidays/special occasions only Patient Tobacco Use Status: Former Tobacco user Tobacco use type: Cigarette Years Smoked: 40 e-Cigarette/Vaping Use: Never Used Second Hand Smoke Exposure: No service: No Current occupational status: retired Cognitive needs: No Hearing needs: No Vision needs: Yes Review of Systems Const Denies daytime sleepiness, Denies excessive sweating, Denies fatigue, Denies fever(s), Denies lethargy, Denies malaise, Denies night sweats, Denies snoring and Denies weight loss Eyes Denies blurry vision and Denies itchy eyes ENT Denies nasal congestion, Denies post nasal drip, Denies sinus pain, Denies sinus pressure and Denies other ( Thrush) Card Denies chest pain, Denies pedal edema, Denies dyspnea, Denies orthopnea and Denies paroxysmal nocturnal dyspnea Resp Denies cough, Denies hemoptysis, Denies excessive phlegm production, Denies dyspnea, Denies snoring and Denies wheezing GI Denies abdominal pain and Denies heartburn Musc Denies myalgias, Denies arthralgias and Denies joint swelling Skin/Breast Denies rash Neuro Denies memory loss and Denies seizure-like activity Psych Denies abnormal sleep pattern, Denies anxiety and Denies memory loss Endo Denies excessive sweating, Denies fatigue and Denies heat intolerance Paco/Lymph Denies easy bruising Aller/Immun Denies itchy eyes, Denies seasonal rhinorrhea and Denies wheezing Physical Exam Vital Signs: Last Vital Signs Pulse 99 05/12/24 13:33 BP 132/72 05/12/24 13:33 Pulse Ox 95 05/12/24 13:33 Oxygen Delivery Method Room Air 05/12/24 13:33 BMI result Body Mass Index 29.4 Const General: no acute distress and alert Nutritional Appearance: not obese Orientation/consciousness: Other orientation findings ( oriented) HEENT Head: Yes atraumatic Eyes General: appearance normal, both eyes and all related structures Sclerae: sclerae normal EOM: EOMs intact bilaterally Neck Neck: Yes supple Lymphatic: no lymphadenopathy noted Resp Effort & Inspection: normal respiratory effort and no use of accessory muscles Auscultation: clear to auscultation bilaterally Cardio Rate: regular rate Rhythm: regular rhythm Heart sounds: no gallops, no murmurs and no rubs Skin General skin exam: other ( warm) Extrem General: No clubbing, No cyanosis and No edema Assessment & Plan Assessment & Plan (1) Emphysema lung: Code(s): J43.9 - Emphysema, unspecified Category: Medical Plan: At this time essentially asymptomatic and with no response to Stiolto and albuterol MDI. Continue to monitor clinically. (2) Personal history of nicotine dependence: Code(s): Z87.891 - Personal history of nicotine dependence Category: Medical Plan: Results of CT chest from February 2024 not available for this visit. On my review, no worrisome nodules. Continue with yearly screening, next in February of 2025, ordered. Orders: Orders CT lung screening 03/12/25 Z87.891 - Personal history of nicotine dependence Coding Level of Care Code Est Pt Level 4 (43701) Diagnoses Emphysema lung J43.9 Personal history of nicotine dependence Z87.891
== END 2024-05-12 15:26 | disposition home or self-care (01) ==
PROVIDERS: PCP Internal Medicine; Visit Provider Internal Medicine Pulmonary Disease
DX: J43.9 Emphysema, unspecified (principal); Z87.891 Personal history of nicotine dependence
CPT/HCPCS: 99214

== ENCOUNTER → 2024-05-12 13:32 | Outpatient (BNVA) | payer MEDICARE, SELFPAY | PROVIDERS: PCP Internal Medicine; Visit Provider Internal Medicine Pulmonary Disease | DX: J43.9 Emphysema, unspecified (principal); Z87.891 Personal history of nicotine dependence | CPT/HCPCS: 99212 ==

== ENCOUNTER 2024-05-18 12:28 | Outpatient (AMB) | payer MEDICARE, SELFPAY ==
[2024-05-18 12:37] VITALS: BP 136/70; BMI 28.5
--- NOTE | 2024-05-18 12:37 | A.OFFPC_ITS ---
Vital Signs 05/18/24 12:37 Height 6 ft Weight 210 lb BMI 28.5 BP 136/70 Blood Pressure Location Lt brachial Position Sitting Intake Visit Reasons: Requesting med changes [employer] Developer Required: No Accompanied by: Self / Same As Patient Allergies No Known Allergies Allergy (Verified 05/18/24 12:38) Tobacco use date assessed: 10/23/23 Fall risk assessment: No Falls in past year Last assessed Fall Risk: 05/18/24 Dental Screening Dental Screen Date: 05/18/24 Did you have a dental visit in the last 12 months?: Yes Did you have a dental problem in the last 6 months where you did not have access to dental care?: No Was dental information given to patient?: Patient has dentist HPI Requesting med changes HPI Details has restless legs syndrome and rx is not helping PFSH Medical History BPH (benign prostatic hyperplasia) Anxiety Surgical History Hx of transurethral resection of prostate H/O colonoscopy Hx of cataract surgery Family History Mother No problems noted. Father No problems noted. Social History Housing: House Alcohol intake: current Alcohol intake frequency: holidays/special occasions only Patient Tobacco Use Status: Former Tobacco user Tobacco use type: Cigarette Years Smoked: 40 e-Cigarette/Vaping Use: Never Used Second Hand Smoke Exposure: No service: No Current occupational status: retired Cognitive needs: No Hearing needs: No Vision needs: Yes Questionnaire Thrive Questionnaire Date Thrive assessed: 08/19/23 HANG-7 AMB Questionnaire HANG-7 Date HANG - 7 assessed: 08/19/23 Source: Developed by Drs. Kameron Purcell, Lisseth Marinelli, Bebeto Cole and colleagues, with an educational pancho from [employer]. Review of Systems Const Denies chills, Denies headache(s) and Denies weight loss ENT Denies headache(s) Card Denies chest pain, Denies syncope, Denies irregular heart rhythm and Denies dyspnea Resp Denies chest congestion, Denies cough and Denies dyspnea GI Denies abdominal pain, Denies change in stool character, Denies nausea and Denies vomiting Musc Denies deformity and Denies joint swelling Neuro Denies syncope and Denies headache(s) Physical exam (Primary Care) Vital Signs: Last Vital Signs BP 136/70 05/18/24 12:37 BMI result Body Mass Index 28.5 Tobacco/Smoking Status: Tobacco use Status Tobacco use date assessed 10/23/23 05/18/24 12:41 Patient Tobacco Use Status Former Tobacco user 05/18/24 12:41 Tobacco use type Cigarette 05/18/24 12:41 e-Cigarette/Vaping Use Never Used 05/18/24 12:41 Thrive Assessment: Date of Thrive Assessment Date Thrive assessed 08/19/23 05/18/24 12:41 Const General: cooperative, comfortable, no acute distress and alert Neck Neck: Yes no lymphadenopathy Thyroid: Thyroid normal Resp Effort & Inspection: normal respiratory effort Auscultation: clear to auscultation bilaterally Percussion: percussion normal Cardio Jugular venous distension: no JVD Palpation: normal PMI Rate: regular rate Rhythm: regular rhythm Heart sounds: S1 normal heart sound present and S2 normal heart sound present GI Inspection: Yes normal to inspection Palpation (GI): No hepatosplenomegaly present Skin General skin exam: no rashes or lesions noted Extrem General: Yes no clubbing, cyanosis or edema Coding Level of Care Code Est Pt Level 3 (40953) Diagnoses Restless legs syndrome G25.81 Assessment & Plan Assessment & Plan (1) Restless legs syndrome: Code(s): G25.81 - Restless legs syndrome Category: Medical Plan: rx changed Medications: New ropinirole administer 1-3 hours before bedtime 2 mg PO BEDTIME 30 tabs 4RF doxepin 25 mg PO BEDTIME 30 caps 4RF
== END 2024-05-18 12:52 | disposition home or self-care (01) ==
PROVIDERS: PCP Internal Medicine; Visit Provider Internal Medicine
DX: G25.81 Restless legs syndrome (principal)

== ENCOUNTER → 2024-05-18 12:28 | Outpatient (BNVA) | payer MEDICARE, SELFPAY | PROVIDERS: PCP Internal Medicine; Visit Provider Internal Medicine | DX: G25.81 Restless legs syndrome (principal) | CPT/HCPCS: 99212 ==

== ENCOUNTER 2024-12-14 08:01 | Outpatient (AMB) | payer MEDICARE, SELFPAY ==
--- NOTE | 2024-12-14 08:09 | AM.OFFWIN_ITS ---
Intake Vital Signs 12/14/24 08:10 Height 6 ft Weight 212 lb 2 oz BMI 28.8 BP 136/84 Blood Pressure Location Lt brachial Position Sitting Pulse 92 Pulse Source Pulse Oximeter Temp 97.8 F Temp Source Oral Pulse Oximetry (%) 96 Oxygen Delivery Method Room Air Intake Visit Reasons: EP-chest & under arm rash Intake Note: Pt presents to the office today for c/o rash on his chest and under his arms x1.5 weeks ago. Pt states it is itchy. Patient Tobacco Use Status: Former Tobacco user Allergies No Known Allergies Allergy (Verified 12/14/24 08:12) HPI HPI Comments 2 History of Present Illness Details History This is a 69 year old male who presents today with a rash for the past few days. He states that he had a hive on the right upper leg and across his chest. He states that he has been itchy and he scratched his chest. He thinks that he made it worse by scratching it. He has had this rash in the past. He states that he uses vaseline on his body daily. He had a cream and prednisone which resolved the rash in the past. He denies new foods, lotions, soaps, detergents, clothes, medication, bug bites, travel, pets. Physical Exam General: Cooperative, healthy appearing, comfortable, no acute distress and well developed Respiratory: Normal respiratory effort and able to speak in complete sentences. Skin: Maculopapular rash on the chest, diffuse, dry, no discharge. No hives noted. Mild erythema, no tenderness to palpation. Extremities: moving all extremities normally [facility] Medical History BPH (benign prostatic hyperplasia) Anxiety Surgical History Hx of transurethral resection of prostate H/O colonoscopy Hx of cataract surgery Family History Mother No problems noted. Father No problems noted. Social History Housing: House Alcohol intake: current Alcohol intake frequency: holidays/special occasions only Patient Tobacco Use Status: Former Tobacco user Tobacco use type: Cigarette Years Smoked: 40 e-Cigarette/Vaping Use: Never Used Second Hand Smoke Exposure: No service: No Current occupational status: retired Cognitive needs: No Hearing needs: No Vision needs: Yes Review of Systems Const All systems reviewed & are unremarkable except as noted in HPI and below Physical Exam Vital Signs: Last Vital Signs Temp 97.8 F 12/14/24 08:10 Pulse 92 12/14/24 08:10 BP 136/84 12/14/24 08:10 Pulse Ox 96 12/14/24 08:10 Oxygen Delivery Method Room Air 12/14/24 08:10 BMI result Body Mass Index 28.8 Assessment & Plan Assessment & Plan (1) Rash: Code(s): R21 - Rash and other nonspecific skin eruption Plan Most allergic reaction vs urticaria vs dermatitis Plan - Prednisone burst for 5 days - Triamcinolone cream BID for 14 days - eucerin cream to the body daily - follow up with PCP or derm Medications: New prednisone 50 mg PO QAM 5 tabs 0RF 5 days triamcinolone acetonide 0.1% 1 appl topical BID 30 grams 1RF 14 days Coding Level of Care Code Est Pt Level 3 (76545) Diagnoses Rash R21
[2024-12-14 08:10] VITALS: BP 136/84; PULSE 92; TEMP 36.6; O2SAT 96; BMI 28.8
== END 2024-12-14 08:56 | disposition home or self-care (01) ==
PROVIDERS: PCP Internal Medicine; Visit Provider Physician Assistant Medical
DX: R21 Rash and other nonspecific skin eruption (principal)

== ENCOUNTER → 2024-12-14 08:01 | Outpatient (BNVA) | payer MEDICARE, SELFPAY | PROVIDERS: PCP Internal Medicine; Visit Provider Physician Assistant Medical | DX: R21 Rash and other nonspecific skin eruption (principal) | CPT/HCPCS: 99212 ==

== ENCOUNTER 2025-01-05 11:35 | Outpatient (AMB) | payer MEDICARE, SELFPAY ==
[2025-01-05 11:37] VITALS: BP 124/80; PULSE 99; O2SAT 98; BMI 28.4
--- NOTE | 2025-01-05 11:37 | MHC.PC.OV ---
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 Required: No Accompanied by: Self / Same As Patient Allergies No Known Allergies Allergy (Verified 01/05/25 12:10) Medication List - Last Reconciled 01/05/25 by Sravan Rodrigues MD alprazolam 1 mg PO TID PRN dorzolamide 2% 1 drp ophthalmic (eye) BID dorzolamide-timolol 22.3-6.8 mg/mL 1 drp ophthalmic (eye) BID doxepin 25 mg PO BEDTIME finasteride 5 mg PO DAILY gabapentin 600 mg PO BEDTIME omeprazole 20 mg PO DAILY ropinirole 2 mg PO BEDTIME triamcinolone acetonide 0.1% 1 appl topical BID 14 days Tobacco use date assessed: 01/05/25 Fall risk assessment: No Falls in past year Last assessed Fall Risk: 01/05/25 Dental Screening Dental Screen Date: 01/05/25 Did you have a dental visit in the last 12 months?: No Did you have a dental problem in the last 6 months where you did not have access to dental care?: No Was dental information given to patient?: No HPI PE CHEN - from - see comments HPI Details Patient comes in today for his annual physical examination - he is also transferring care over from Dr. Burgos, who retired from the practice a few months ago Patient states that he was seeing Dr. Delaney at [facility] [place] for the past 4 years for his arthritis but was reportedly advised at his last visit there earlier this year that he does not need to return there as there is not much else they can do for him and he can just have his PCP refill his meds and gabapentin Rx going forward - he will need his gabapentin Rx refilled today Patient states that he currently feels okay overall He denies any headaches or dizziness Denies any chest pains, no increased shortness of breath No nausea/vomiting, no abdominal pain No change in bowel habits noted He denies any acute urinary symptoms He had repeat EGD and colonoscopy done with Dr. Min last year on 12/25/2023 - EGD still reveals (+) Preston's esophagus; repeat colonoscopy revealed (+) diverticulosis with a colonic polyp, which turned out to be hyperplastic on pathology He will likely not need any further colonoscopies in the future unless indicated, due to his age [facility] Medical History (Updated 01/08/25 @ 15:36 by Sravan Rodrigues MD) Overweight (BMI 25.0-29.9) Insomnia GERD without esophagitis Glaucoma BPH (benign prostatic hyperplasia) GERD (gastroesophageal reflux disease) Anemia Anxiety Surgical History (Updated 01/08/25 @ 15:31 by Sravan Rodrigues MD) History of esophagogastroduodenoscopy (EGD) Hx of transurethral resection of prostate H/O colonoscopy Hx of cataract surgery Family History Mother No problems noted. Father No problems noted. Social History Housing: House Alcohol intake: current Alcohol intake frequency: holidays/special occasions only Patient Tobacco Use Status: Former Tobacco user Tobacco use type: Cigarette Years Smoked: 40 e-Cigarette/Vaping Use: Never Used Second Hand Smoke Exposure: No service: No Current occupational status: retired Cognitive needs: No Hearing needs: No Vision needs: Yes Questionnaire PHQ-9 Over the last 2 weeks, how often have you been bothered by any of the following problems? 1. Little interest or pleasure in doing things: not at all 2. Feeling down, depressed, or hopeless: not at all 3. Trouble falling or staying asleep, or sleeping too much: not at all 4. Feeling tired or having little energy: not at all 5. Poor appetite or overeating: not at all 6. Feeling bad about yourself - or that you are a failure or have let yourself or your family down: not at all 7. Trouble concentrating on things, such as reading the newspaper or watching television: not at all 8. Moving or speaking so slowly that other people could have noticed. Or the opposite - being so fidgety or restless that you have been moving around a lot more than usual: not at all 9. Thoughts that you would be better off or of hurting yourself in some way: not at all Total score: 0 Depression Screening Interpretation: Negative Depression Screening Done: Yes 54017 - PHQ-9 Billing: Yes Source: Developed by Drs. Kameron Purcell, Lisseth Marinelli, Bebeto Cole and colleagues, with an educational pancho from [employer] Thrive Questionnaire Date Thrive assessed: 01/05/25 I am a: Patient What is your living situation today?: I have a steady place to live Within the past 12 months, did the food you bought not last and you didn't have the money to get more?: Never true Within the past 12 months, did you worry whether your food would run out before you got money to buy more?: Never true Do you have trouble paying for medicines?: No Do you have trouble getting transportation to medical appointments?: No Do you have trouble paying your heating and electricity bill?: No Do you have trouble taking care of your child, family member or friend?: No Do you have trouble with day-to-day activities such as bathing, preparing meals, shopping, managing finances, etc.?: No Are you currently unemployed and looking for a job?: No Are you interested in more education?: No Please select the resources that you would like help with: None Currently or been in a relationship where the following occur: I choose not to answer THRIVE Score: 0 AUDIT C Alcohol Use Questionnaire (AUDIT-C) 1. How often do you have a drink containing alcohol?: Never 3. How often do you have six or more drinks on one occasion?: Never Total Score: 0 Score Reviewed/Action Taken: Yes HANG-7 AMB Questionnaire HANG-7 Date HANG - 7 assessed: 01/05/25 Feeling nervous, anxious, or on edge: 0 = Not at all Not being able to stop or control worryin = Not at all Worrying too much about different things: 0 = Not at all Trouble relaxin = Not at all Being so restless that it is hard to sit still: 0 = Not at all Becoming easily annoyed or irritable: 0 = Not at all Feeling afraid as if something awful might happen: 0 = Not at all Total HANG-7 score (0-4 normal; 5-9 mild; 10-14 moderate; 15-21 severe): 0 Source: Developed by Drs. Kameron Purcell, Lisseth Marinelli, Bebeto Cole and colleagues, with an educational pancho from [employer] Review of Systems Const Denies chills, Denies fatigue, Denies fever(s), Denies headache(s), Denies malaise and Denies weakness Eyes Denies blurry vision, Denies change in vision, Denies irritation and Denies itchy eyes ENT Denies dysphagia, Denies dizziness, Denies otalgia, Denies headache(s), Denies nasal congestion, Denies neck pain, Denies odynophagia and Denies sore throat Card Denies chest pain, Denies rapid heart rate, Denies irregular heart rhythm, Denies palpitations and Denies dyspnea Resp Denies chest congestion, Denies cough, Denies dyspnea and Denies wheezing GI Denies abdominal pain, Denies bloating, Denies constipation, Denies dysphagia, Denies heartburn, Denies diarrhea, Denies nausea, Denies odynophagia and Denies vomiting Denies hematuria, Denies difficulty urinating, Denies dysuria, Denies urinary frequency and Denies urinary urgency Musc Denies back pain, Denies arthralgias, Denies joint swelling, Denies muscle weakness and Denies neck pain Skin/Breast Denies change in pigmentation, Denies lesions, Denies rash and Denies unusual bruising Neuro Denies dizziness, Denies headache(s), Denies paresthesias and Denies weakness Endo Denies fatigue and Denies palpitations Aller/Immun Denies itchy eyes and Denies wheezing Physical exam (Primary Care) Vital Signs: Last Vital Signs Pulse 99 01/05/25 11:37 BP 124/80 01/05/25 11:37 Pulse Ox 98 01/05/25 11:37 Oxygen Delivery Method Room Air 01/05/25 11:37 BMI result Body Mass Index 28.4 Tobacco/Smoking Status: Tobacco use Status Tobacco use date assessed 01/05/25 01/05/25 11:44 Patient Tobacco Use Status Former Tobacco user 01/05/25 11:44 Tobacco use type Cigarette 01/05/25 11:44 e-Cigarette/Vaping Use Never Used 01/05/25 11:44 PHQ-9: PHQ-9 Score PHQ-9: Total score 0 01/05/25 12:23 Depression Screening Interpretation: Negative Thrive Assessment: Date of Thrive Assessment Date Thrive assessed 01/05/25 01/05/25 11:44 Currently or been in a relationship where the following occur: I choose not to answer Const General: no acute distress, alert and awake Orientation/consciousness: patient oriented x3 [facility] Head: Yes normocephalic and Yes atraumatic Ears: external ears normal, TM's normal bilaterally and EAC's normal General nose exam: No nasal discharge present Face and sinus: Yes normal facial exam and Yes sinuses nontender Teeth and gingiva: dentition normal Throat: Yes posterior oropharynx normal and Yes tonsils normal (no TP congestion) Eyes Eyelids: Yes eyelids normal Conjunctivae: conjunctivae normal Pupils: Equal, round and reactive pupils present EOM: EOMs intact bilaterally Neck Neck: Yes no lymphadenopathy and Yes supple Thyroid: Thyroid normal Resp Auscultation: clear to auscultation bilaterally, no rales and no wheezes Cardio Rate: regular rate Rhythm: regular rhythm Heart sounds: no murmurs GI Palpation (GI): Soft to palpation, nontender and No hepatosplenomegaly present Auscultation: normal bowel sounds General: Yes no CVA tenderness Back/Spine/Pelvis Back: no CVA tenderness Thoracic/Lumbar Spine: thoracic and lumbar spine normal to inspection Skin Lesions: no lesions Rashes: no rashes Neuro General: patient oriented x3, moves all extremities, no focal motor deficits and CN's II-XI intact bilaterally Cranial nerves: Yes Equal, round and reactive pupils present Cognition (Neuro): normal cognition Gait exam (Neuro): Normal gait present Extrem General: Yes no clubbing, cyanosis or edema Coding Level of Care Code Est Pt Prev Care >65y(70878) Diagnoses Annual physical exam Z00.00 GERD without esophagitis K21.9 Arthritis M19.90 Restless legs syndrome G25.81 Benign prostatic hyperplasia, unspecified whether lower urinary tract symptoms present N40.0 Lower urinary tract symptom presence: unspecified whether lower urinary tract symptoms present Glaucoma of both eyes, unspecified glaucoma type H40.9 Glaucoma type: unspecified Laterality: bilateral Insomnia, unspecified type G47.00 Insomnia type: unspecified Anxiety F41.9 Overweight (BMI 25.0-29.9) E66.3 Additional Codes PHQ-9 - 04740 - PHQ-9 Billing: Yes ([id number]) Assessment & Plan Assessment & Plan (1) Annual physical exam: Code(s): Z00.00 - Encounter for general adult medical examination without abnormal findings Category: Medical Plan: Patient has not had any follow up labs done here in a while Will have him get his labs and fasting lipids rechecked in 3 months - he is advised to try and get these done just before he returns for his next follow up appt in 3 months He had repeat EGD and colonoscopy done with Dr. Min last year on 12/25/2023 - EGD still reveals (+) Preston's esophagus; repeat colonoscopy revealed (+) diverticulosis with a colonic polyp, which turned out to be hyperplastic on pathology and he will likely not need any further colonoscopies in the future unless indicated, due to his age at that time when his next screening is due (2) GERD without esophagitis: Code(s): K21.9 - Gastro-esophageal reflux disease without esophagitis Category: Medical Plan: Dietary restrictions reinforced His repeat EGD done in November 2023 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 Continue Omeprazole 20 mg QD Follow up with GI as scheduled for continuing surveillance (3) Arthritis: Code(s): M19.90 - Unspecified osteoarthritis, unspecified site Category: Medical Plan: Patient used to follow-up with rheumatology at the [facility] [place] regularly for his arthritis and joint pains but was reportedly advised at his last visit there earlier this year that he does not need to return there as there is not much else they can do for him and he can just have his PCP refill his meds and Gabapentin Rx going forward Continue Gabapentin 600 mg QHS (4) Restless legs syndrome: Code(s): G25.81 - Restless legs syndrome Category: Medical Plan: Continue Ropinirole 2 mg Q HS (5) BPH (benign prostatic hyperplasia): Code(s): N40.0 - Benign prostatic hyperplasia without lower urinary tract symptoms Category: Medical Qualifiers: Lower urinary tract symptom presence: unspecified whether lower urinary tract symptoms present Qualified Code(s): N40.0 - Benign prostatic hyperplasia without lower urinary tract symptoms Plan: Continue Finasteride 5 mg QD Follow up with urology as scheduled (6) Glaucoma: Code(s): H40.9 - Unspecified glaucoma Category: Medical Qualifiers: Glaucoma type: unspecified Laterality: bilateral Qualified Code(s): H40.9 - Unspecified glaucoma Plan: Continue Dorzolamide-Timolol eye drops 22.3-6.8 mg/ml 1 drop into each eye BID Follow-up with ophthalmology as scheduled (7) Insomnia: Code(s): G47.00 - Insomnia, unspecified Category: Medical Qualifiers: Insomnia type: unspecified Qualified Code(s): G47.00 - Insomnia, unspecified Plan: Sleep hygiene reinforced Continue Doxepin 25 mg Q HS (8) Anxiety: Code(s): F41.9 - Anxiety disorder, unspecified Category: Medical Plan: Continue Alprazolam 1 mg TID PRN (9) Overweight (BMI 25.0-29.9): Code(s): E66.3 - Overweight Category: Medical Plan: Reinforced diet; exercise and weight loss are impractical/unrealistic due to patient's physical issues Plan Follow-up in 3 months Orders: Orders Complete Blood Count Auto Diff 3 Months D64.9 - Anemia, unspecified, M19.90 - Unspecified osteoarthritis, unspecified site Comprehensive [place]. Panel Fast 3 Months E78.00 - Pure hypercholesterolemia, unspecified, M19.90 - Unspecified osteoarthritis, unspecified site Lipid Panel 3 Months E78.00 - Pure hypercholesterolemia, unspecified, M19.90 - Unspecified osteoarthritis, unspecified site TSH reflex Free T4 3 Months E78.00 - Pure hypercholesterolemia, unspecified, M19.90 - Unspecified osteoarthritis, unspecified site UA CC w/rflx Micro + Cult 3 Months M19.90 - Unspecified osteoarthritis, unspecified site, R30.0 - Dysuria Vitamin D 25-OH Total 3 Months E55.9 - Vitamin D deficiency, unspecified, M19.90 - Unspecified osteoarthritis, unspecified site Vitamin B12 and Folate 3 Months E53.8 - Deficiency of other specified B group vitamins, M19.90 - Unspecified osteoarthritis, unspecified site IRON PROFILE 3 Months D50.9 - Iron deficiency anemia, unspecified, M19.90 - Unspecified osteoarthritis, unspecified site Prostate Specific Antigen 3 Months M19.90 - Unspecified osteoarthritis, unspecified site, N40.0 - Benign prostatic hyperplasia without lower urinary tract symptoms Erythrocyte Sedimentation Rate 3 Months M19.90 - Unspecified osteoarthritis, unspecified site C Reactive Protein 3 Months M19.90 - Unspecified osteoarthritis, unspecified site Medications: Changed From gabapentin 600 mg PO BEDTIME To gabapentin 600 mg PO BEDTIME 90 tabs 1RF 90 days
--- OUTSIDE RECORDS SUMMARY | 2025-01-05 12:15 | XMS_ITS | Patient Health Record ---
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 for 1 day(s) 12/03/2023 Active Doxepin HCl 25 MG 1 capsule at bedtime Orally Once a day for 30 day(s) Active Multi Vitamin - 1 tablet Orally Once a day for 30 day(s) Active B Complex - as directed Orally Active Iron (Ferrous Sulfate) 325 (65 Fe) MG 1 tablet Orally Three times a Week for 30 day(s) Active MiraLax (colon prep) 8.3 ounce ((238) grams mixed with Gatorade or Crystal Light orally begin at 5:00 p.m. the day before the procedure for 1 day 11/17/2023 Active ALPRAZolam 1 MG TAKE 1 TABLET BY MICHELLE THREE TIMES DAILY NEEDED FOR ANXIETY Oral for 30 Active Dulcolax (colon prep) 5 MG take at 3:00 p.m and 7:00p.m. Orally two tablets twice a day for one day for 1 day 11/17/2023 Active Finasteride 5 MG 1 tablet Orally Once a day for 30 day(s) Active Timolol Maleate 0.5 % Ophthalmic for 75 Active Omeprazole 20 MG TAKE 1 CAPSULE BY MO [facility] DAILY 30 MINUTES BEFORE BREAKFAST for 30 Active Gabapentin 600 MG TAKE 1 TABLET BY MICHELLE TH AT BEDTIME Oral for 30 Active Betamethasone Dipropionate 0.05 % External for 30 Active Ketoconazole 2 % External for 30 Active Immunizations Vaccine Route Administration Date Status Comme nts Influenza Unknown 04/17/2021 Administered Influenza Unknown 04/21/2023 Administered Social History Tobacco Use: Social History Observation Description Date Details (start date - stop date) Never Smoker NA - NA Tobacco Use/Smoking Question Answer Notes Patient is a nonsmoker Alcohol Screen Question Answer Notes Did you have a drink containing alcohol in the p ast year? No Points 0 Interpretation Negative Problems Problem Type SNOMED Code ICD Code Onset Dates Problem Status W/U Status Risk Notes Problem 883845559 Colon cancer screening (Z12.11) Active confirmed Problem Iron deficiency anemia (29006762) Iron deficiency anemia (D50.9) Active confirmed Problem 73996377 Iron deficiency anemia, unspecified iron deficiency anemia type (D50.9) Active confirmed Problem Preston esophagus (239564563) 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 Problem 33449445 Drug-induced constipation (K59.03) Active confirmed Problem 532408744 Gastroesophageal reflux disease, unspecified whether esophagitis present (K21.9) Active confirmed Encounters Encounter Location Date Provider Diagnosis [facility] [address] [place] [address] 01/07/2024 Abdoulaye Min Jr Plan Of Treatment Future Test Test Name Order Date COLONOSCOPY 11/18/2021 UPPER GI ENDOSCOPY 11/13/2023 COLONOSCOPY 11/13/2023 Next Appt Details Provider Name:Abdoulaye washington Jr, 04/24/2025 01:15:00 PM, [address] [place] [address], [address], [place], [address], Insurance Providers Payer Name Payer Address Payer Phone Subscriber Number Group Number Insured Name Patient Relationship to Insured Coverage Start Date Coverage End Date [facility] [address] [facility] [place] [phone] [id number] JIMENEZ Self - patient is the insured Medical (General) History Medical History History ICD Code Panic disorder/anxiety Arthritis. BPH SOB Insomnia Colonoscopy 03/20, hyperplastic polyps, t en-year followup Surgical History Surgery Date(Month/Year) cateract eye surgery, left eye 2017 3 cateract surgery on left eye 2020
== END 2025-01-05 12:33 | disposition home or self-care (01) ==
LOC: HO.HMCH 11:36
PROVIDERS: PCP Internal Medicine; Visit Provider Internal Medicine
DX: Z00.00 Encounter for general adult medical examination without abnormal findings (principal); K21.9 Gastro-esophageal reflux disease without esophagitis; M19.90 Unspecified osteoarthritis, unspecified site; G25.81 Restless legs syndrome; N40.0 Benign prostatic hyperplasia without lower urinary tract symptoms; H40.9 Unspecified glaucoma; G47.00 Insomnia, unspecified; F41.9 Anxiety disorder, unspecified; E66.3 Overweight

== ENCOUNTER → 2025-01-05 11:35 | Outpatient (BNVA) | payer MEDICARE, SELFPAY | PROVIDERS: PCP Internal Medicine; Visit Provider Internal Medicine | DX: Z00.00 Encounter for general adult medical examination without abnormal findings (principal); K21.9 Gastro-esophageal reflux disease without esophagitis; M19.90 Unspecified osteoarthritis, unspecified site; G25.81 Restless legs syndrome; N40.0 Benign prostatic hyperplasia without lower urinary tract symptoms; H40.9 Unspecified glaucoma; G47.00 Insomnia, unspecified; F41.9 Anxiety disorder, unspecified; E66.3 Overweight; Z68.28 Body mass index [BMI] 28.0-28.9, adult | CPT/HCPCS: 96127; 99397 ==

== ENCOUNTER 2025-02-07 13:16 | Outpatient (AMB) | payer MEDICARE, SELFPAY ==
[2025-02-07 13:19] VITALS: BP 102/62; PULSE 92; O2SAT 96; BMI 28.6
--- NOTE | 2025-02-07 13:19 | MHC.OFFVIS ---
Vital Signs 02/07/25 13:19 Height 6 ft Weight 211 lb BMI 28.6 BP 102/62 Blood Pressure Location Lt brachial Position Sitting Pulse 92 Pulse Source Pulse Oximeter Pulse Oximetry (%) 96 Oxygen Delivery Method Room Air Intake Visit Reasons: Shortness of breath Allergies No Known Allergies Allergy (Verified 02/07/25 13:25) HPI HPI Shortness of breath: Details: 69-year-old gentleman, former 40 pack-year smoker, quit 2016, with unrevealing cardiac workup for underlying dyspnea on exertion, noted to have pulmonary emphysema with moderate reversible obstruction and decreased diffusion capacity on pulmonary function testing. Patient was tried on Stiolto and albuterol MDI with no changes in his symptoms. He attempted cardiopulmonary exercise test, but was not able to tolerate secondary to panic attack. Patient states that he also was diagnosed with anemia and with its treatment his dyspnea has improved. After the last office visit he had some dyspnea when the tree pollen was high in he has used his Spiriva with good response. However, it is expensive for her he wants to try to use just albuterol MDI. [facility] Medical History (Updated 01/08/25 @ 15:36 by Sravan Rodrigues MD) Overweight (BMI 25.0-29.9) Insomnia GERD without esophagitis Glaucoma BPH (benign prostatic hyperplasia) GERD (gastroesophageal reflux disease) Anemia Anxiety Surgical History (Updated 01/08/25 @ 15:31 by Sravan Rodrigues MD) History of esophagogastroduodenoscopy (EGD) Hx of transurethral resection of prostate H/O colonoscopy Hx of cataract surgery Family History Mother No problems noted. Father No problems noted. Social History Housing: House Alcohol intake: current Alcohol intake frequency: holidays/special occasions only Patient Tobacco Use Status: Former Tobacco user Tobacco use type: Cigarette Years Smoked: 40 e-Cigarette/Vaping Use: Never Used Second Hand Smoke Exposure: No service: No Current occupational status: retired Cognitive needs: No Hearing needs: No Vision needs: Yes Review of Systems Const Denies daytime sleepiness, Denies excessive sweating, Denies fatigue, Denies fever(s), Denies lethargy, Denies malaise, Denies night sweats, Denies snoring and Denies weight loss Eyes Denies blurry vision and Denies itchy eyes ENT Denies nasal congestion, Denies post nasal drip, Denies sinus pain, Denies sinus pressure and Denies other ( Thrush) Card Denies chest pain, Denies pedal edema, Denies dyspnea, Denies orthopnea and Denies paroxysmal nocturnal dyspnea Resp Denies cough, Denies hemoptysis, Denies excessive phlegm production, Denies dyspnea, Denies snoring and Denies wheezing GI Denies abdominal pain and Denies heartburn Musc Denies myalgias, Denies arthralgias and Denies joint swelling Skin/Breast Denies rash Neuro Denies memory loss and Denies seizure-like activity Psych Denies abnormal sleep pattern, Denies anxiety and Denies memory loss Endo Denies excessive sweating, Denies fatigue and Denies heat intolerance Paco/Lymph Denies easy bruising Aller/Immun Denies itchy eyes, Denies seasonal rhinorrhea and Denies wheezing Physical Exam Vital Signs: Last Vital Signs Pulse 92 02/07/25 13:19 BP 102/62 02/07/25 13:19 Pulse Ox 96 02/07/25 13:19 Oxygen Delivery Method Room Air 02/07/25 13:19 BMI result Body Mass Index 28.6 Const General: no acute distress and alert Nutritional Appearance: not obese Orientation/consciousness: Other orientation findings ( oriented) HEENT Head: Yes atraumatic Eyes General: appearance normal, both eyes and all related structures Sclerae: sclerae normal EOM: EOMs intact bilaterally Neck Neck: Yes supple Lymphatic: no lymphadenopathy noted Resp Effort & Inspection: normal respiratory effort and no use of accessory muscles Auscultation: clear to auscultation bilaterally Cardio Rate: regular rate Rhythm: regular rhythm Heart sounds: no gallops, no murmurs and no rubs Skin General skin exam: other ( warm) Extrem General: No clubbing, No cyanosis and No edema Assessment & Plan Assessment & Plan (1) COPD (chronic obstructive pulmonary disease): Code(s): J44.9 - Chronic obstructive pulmonary disease, unspecified Category: Medical Plan: Controlled on albuterol MDI as needed, patient wants to hold off on using Spiriva as it is somewhat expensive. Continue current regimen. (2) Personal history of nicotine dependence: Code(s): Z87.891 - Personal history of nicotine dependence Category: Medical Plan: Results of lung cancer screening CT chest reviewed and does not show worrisome pulmonary nodules. Continue with yearly screening next in February of 2025. Coding Level of Care Code Est Pt Level 4 (13981) Diagnoses COPD (chronic obstructive pulmonary disease) J44.9 Personal history of nicotine dependence Z87.891
--- OUTSIDE RECORDS SUMMARY | 2025-02-07 14:05 | XMS_ITS | Patient Health Record ---
Author Organization [facility] Address [address] [place] [address] Care Team Providers Care Hotel Reservation Agent Name Role Phone Jesse Burgos MD Primary [...] 20 MG TAKE 1 CAPSULE BY [place] [facility] DAILY 30 MINUTES BEFORE BREAKFAST for 30 [...] Problem Status W/U Status Risk Notes Problem 601502186 Colon cancer screening (Z12.11) Active confirmed Problem Iron deficiency anemia (04568798) Iron deficiency anemia (D50.9) Active confirmed Problem 37771430 Iron deficiency anemia, unspecified iron deficiency anemia type (D50.9) Active confirmed Problem 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 Problem 61362999 Drug-induced constipation (K59.03) Active confirmed Problem 769658457 Gastroesophageal reflux disease, unspecified whether esophagitis present (K21.9) Active confirmed Plan Of Treatment Future Test Test Name Order Date COLONOSCOPY 11/18/2021 UPPER GI ENDOSCOPY 11/13/2023 COLONOSCOPY 11/13/2023 Next Appt Details Provider Name:Abdoulaye washington , 04/24/2025 01:15:00 PM, [address] [place] [address], [address], [place], [address], Insurance Providers Payer Name Payer Address Payer Phone Subscriber Number Group Number Insured Name Patient Relationship to Insured Coverage Start Date Coverage End Date [facility] [address] [place] [phone] [id number] JIMENEZ Self - patient is the insured Medical (General) History Medical History History ICD Code Panic disorder/anxiety Arthritis. BPH SOB Insomnia Colonoscopy 03/20, hyperplastic polyps, t en-year followup Surgical History Surgery Date(Month/Year) cateract eye surgery, left eye 2017 08 cateract surgery on left eye 2020
== END 2025-02-07 13:36 | disposition home or self-care (01) ==
LOC: HO.HPS 13:17
PROVIDERS: PCP Internal Medicine; Visit Provider Internal Medicine Pulmonary Disease
DX: J44.9 Chronic obstructive pulmonary disease, unspecified (principal); Z87.891 Personal history of nicotine dependence
CPT/HCPCS: 99214

== ENCOUNTER → 2025-02-07 13:16 | Outpatient (BNVA) | payer MEDICARE, SELFPAY | PROVIDERS: PCP Internal Medicine; Visit Provider Internal Medicine Pulmonary Disease | DX: J43.9 Emphysema, unspecified (principal); J44.9 Chronic obstructive pulmonary disease, unspecified; R06.09 Other forms of dyspnea; D64.9 Anemia, unspecified; Z87.891 Personal history of nicotine dependence | CPT/HCPCS: 99212 ==

== ENCOUNTER 2025-03-13 12:49 | Outpatient (REF) | payer MEDICARE, SELFPAY ==
--- OUTSIDE RECORDS SUMMARY | 2023-11-24 08:00 | XMS_ITS ---
Author Organization [facility] Address [address] [facility] [address] [place] [address] Care Team Providers Care Turf Farmer Name Role Phone Loretta LUTHER, Jesse Primary Care Provider Abdoulaye Wong Jr [phone] REASON FOR VISIT gerd,fe def anemia Encounters Encounter Location Date Provider Diagnosis [facility] Outpatient [address] [place] [id number] 11/24/2023 Abdoulaye Min Jr Plan Of Treatment Next Appt Details Provider Name:Abdoulaye washington Jr, 04/24/2025 01:15:00 PM, [address] [place] [address], [address], [place], [address], Progress Notes * LOLA JIMENEZ LDOB:[birth year] (69 yo M)Acc No.[id number]:11/24/2023 EGD and COL/MAC Patient: Elver NICOLELOLA RYAN Provider: Chelly Min MD :1955 A ge:68 Y S ex:Male Date:11/24/2023 Address:[address] , [facility] Pcp:Jesse Burgos MD Subjective: * Chief Complaints: * 1 . Gerd,fe def anemia. * Medical History: Objective: * Vitals: Assessment: Plan: * Treatment: * * The named appointment provid er may or may not be the originator of this progress note, and it is not deemed complete until electronically signed by the appointment provider. Sign off status: Pending * Provider: Chelly Min MD Date: 0 11/24/2023 Generated for Lorie gutierres/Liliana/Allie on: 0 03/13/2025 05:36 PM EDT
--- OUTSIDE RECORDS SUMMARY | 2023-12-25 07:50 | XMS_ITS ---
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 Encounters Encounter Location Date Provider Diagnosis [facility] Outpatient [address] [place] [id number] 12/25/2023 Abdoulaye Min Jr Colon polyps K63.5 [...] 01:15:00 PM, [address], [address], [place], [address], Progress Notes * LOLA JIMENEZ LDOB:[birth year] (69 yo M)Acc No.[id number]:12/25/2023 EGD and COL/MAC Patient: LOLA LAINEZ Provider: Chelly Min MD :[id number] A ge:68 Y S ex:Male Date:12/25/2023 Address:[address] [place] [address] [address] [address] Pcp:Jesse Burgos MD Subjective: * Chief Complaints: [...] Procedure Codes: 4 5385 LESION REMOVAL COLONOSCOPY, 78139 UPPER GI ENDOSCOPY, BIOPSY * * The named appointment provid er may or may not be the originator of this progress note, and it is not deemed complete until electronically signed by the appointment provider. Sign off status: Pending * Provider: Chelly Min MD Date: 0 12/25/2023 Generated for Lorie gutierres/Liliana/Saeitting on: 0 03/13/2025 05:36 PM EDT
--- NOTE | ~2025-03-13 | CT_ITS ---
EXAMINATION: CT LUNG SCREENING HISTORY: Z87.891 - Personal history of nicotine dependence TECHNIQUE: Low dose axial images were obtained from the sternal notch to upper abdomen without IV contrast per standard departmental protocol. Sagittal and coronal reformatted images were also obtained and reviewed. One or more of the following techniques was used for dose reduction: Automated exposure control, adjustment of the mA and/or kV according to patient size, use of iterative reconstruction technique. DLP: 69 mGy-cm COMPARISON: Comparison is made with the prior examination dated 03/01/2024. FINDINGS: Lung nodules: Again seen is a 5 mm nodule right middle lobe (series 4, image 86), and a 5 mm calcified granuloma in the left upper lobe (series 4, image 53). No new pulmonary nodules are identified. Emphysema: mild Coronary Calcification: none Aortic Arch Calcification: mild Potentially Significant Incidentals : none Additional Chest Findings: There is no pleural or pericardial effusion. No mediastinal or axillary lymphadenopathy is identified. There is a large hiatal hernia. Visualized upper abdomen: The visualized portions of the liver, spleen, and adrenals have an unremarkable unenhanced appearance. CT/CT lung screening IMPRESSION: No suspicious pulmonary nodules are identified. LUNG-RADS ASSESSMENT: Lung-RADS 2: Benign MANAGEMENT: Continue annual screening with LDCT in 12 months Category S: N/A Electronically signed by: Kameron Flowers MD 03/13/2025 01:25 PM EDT
--- OUTSIDE RECORDS SUMMARY | 2025-03-13 17:36 | XMS_ITS | Patient Health Record ---
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 Role Phone Jesse Burgos MD Primary [...] 20 MG TAKE 1 CAPSULE BY [place] [facility] DAILY 30 MINUTES BEFORE BREAKFAST for 30 [...] Problem Status W/U Status Risk Notes Problem 707422284 Colon cancer screening (Z12.11) Active confirmed Problem Iron deficiency anemia (12377808) Iron deficiency anemia (D50.9) Active confirmed Problem 07045507 Iron deficiency anemia, unspecified iron deficiency anemia type (D50.9) Active confirmed Problem Preston esophagus (182331421) 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 Problem 58600725 Drug-induced constipation (K59.03) Active confirmed Problem 995399308 Gastroesophageal reflux disease, unspecified whether esophagitis present (K21.9) Active confirmed Plan Of Treatment Future Test Test Name Order Date COLONOSCOPY 11/18/2021 UPPER GI ENDOSCOPY 11/13/2023 COLONOSCOPY 11/13/2023 Next Appt Details Provider Name:Abdoulaye washington , 04/24/2025 01:15:00 PM, [address] [place] [address], [address], [place], [address], Insurance Providers Payer Name Payer Address Payer Phone Subscriber Number Group Number Insured Name Patient Relationship to Insured Coverage Start Date Coverage End Date [facility] [address] [place] [phone] [id number] LOLA JIMENEZ Self - patient is the insured Medical (General) History Medical History History ICD Code Panic disorder/anxiety Arthritis. BPH SOB Insomnia Colonoscopy 03/20, hyperplastic polyps, t en-year followup Surgical History Surgery Date(Month/Year) cateract eye surgery, left eye 2017 08 cateract surgery on left eye 2020
== END 2025-03-13 12:50 | disposition home or self-care (01) ==
LOC: HO.CT 12:49
PROVIDERS: PCP Internal Medicine; Visit Provider Internal Medicine Pulmonary Disease
DX: Z12.2 Encounter for screening for malignant neoplasm of respiratory organs (principal); Z87.891 Personal history of nicotine dependence
CPT/HCPCS: 71271

== ENCOUNTER → 2025-03-13 12:51 | Outpatient (BNV) | payer MEDICARE, SELFPAY | PROVIDERS: PCP Internal Medicine; Visit Provider Radiology Diagnostic Radiology | DX: F17.210 Nicotine dependence, cigarettes, uncomplicated (principal) | CPT/HCPCS: 71271 ==

== ENCOUNTER 2025-04-11 07:07 | Outpatient (REF) | payer MEDICARE, SELFPAY ==
--- OUTSIDE RECORDS SUMMARY | 2023-11-24 08:00 | XMS_ITS ---
Author Organization [facility] Address [address] [facility] [address] [place] [address] Care Team Providers Care Powder Press Operator Name Role Phone Loretta LUTHER, Jesse Primary Care Provider Abdoulaye Wong Jr REASON FOR VISIT gerd,fe def anemia Encounters Encounter Location Date Provider Diagnosis [facility] Outpatient [address] [place] [id number] 11/24/2023 Abdoulaye Min Jr Plan Of Treatment Next Appt Details Provider Name:Abdoulaye washington Jr, 04/24/2025 01:15:00 PM, [address] [place] [address], [address], [place], [address], Progress Notes * LOLA JIMENEZ LDOB:[birth year] (69 yo M)Acc No.[id number]:11/24/2023 EGD and COL/MAC Patient: Elver NICOLELOLA RYAN Provider: Chelly Min MD :1955 A ge:68 Y S ex:Male Date:11/24/2023 Address:[address] , [id number] Pcp:Jesse Burgos MD Subjective: * Chief Complaints: [...] 0 11/24/2023 Generated for Lorie gutierres/Liliana/Allie on: 1 07:10 AM EDT
--- OUTSIDE RECORDS SUMMARY | 2023-12-25 07:50 | XMS_ITS ---
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 Encounters Encounter Location Date Provider Diagnosis [facility] [place] [address] [place] [phone] 12/25/2023 Abdoulaye Min Jr Colon polyps K63.5 [...] Provider Name:Abdoulaye washington Jr, 04/24/2025 01:15:00 PM, [address], [address], [place], [address], Progress Notes * LOLA JIMENEZ LDOB:[birth year] (69 yo M)Acc No.[id number]:12/25/2023 EGD and COL/MAC Patient: LOLA LAINEZ Provider: Chelly Min MD :1955 A ge:68 Y S ex:Male Date:12/25/2023 Address:[address] [place] [address] [address] [address] Pcp:Jesse Burgos MD Subjective: * Chief Complaints: * 1 . Gerd, fe def anemia. * Medical History: Objective: * Vitals: Assessment: * Assessment: 1. C olon polyps - K63.5 (Primary) 2 . I anil deficiency anemia - D50.9 3 . H iatal hernia - K44.9 4 . B arrett esophagus - K22.70 ? Plan: * Treatment: * Procedure Codes: 4 5385 LESION REMOVAL COLONOSCOPY, 49413 UPPER GI ENDOSCOPY, BIOPSY * * The named appointment provid er may or may not be the originator of this progress note, and it is not deemed complete until electronically signed by the appointment provider. Sign off status: Pending * Provider: Chelly Min MD Date: 0 12/25/2023 Generated for Lorie gutierres/Liliana/Saeitting on: 1 07:11 AM EDT
--- OUTSIDE RECORDS SUMMARY | 2025-04-11 07:11 | XMS_ITS | Patient Health Record ---
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 Name Role Phone Jesse Burgos MD Primary Care Provider Abdoulaye Wong Jr Unavailable Allergies No Known Allergies Reason For Referral No Information Medications Medication SIG (Take, Route, Frequency, Duration) Notes Start Date End Date Status Colyte with Flavor Packs 240 GM As directed Orally Over the specified time.; Duration: 1 day(s) 12/03/2023 Active Doxepin HCl 25 MG 1 capsule at bedtime Orally Once a day; Duration: 30 day(s) Active Multi Vitamin - 1 tablet Orally Once a day; Duration: 30 day(s) Active B Complex - as directed Orally Active Iron (Ferrous Sulfate) 325 (65 Fe) MG 1 tablet Orally Three times a Week; Duration: 30 day(s) Active MiraLax (colon prep) 8.3 ounce ((238) grams mixed with Gatorade or Crystal Light orally begin at 5:00 p.m. the day before the procedure; Duration: 1 day 11/17/2023 Active ALPRAZolam 1 MG TAKE 1 TABLET BY [facility] TIM[facility] DAILY NEEDED FOR ANXIETY Oral; Duration: 30 Active Dulcolax (colon prep) 5 MG take at 3:00 p.m and 7:00p.m. Orally two tablets twice a day for one day; Duration: 1 day 11/17/2023 Active Finasteride 5 MG 1 tablet Orally Once a day; Duration: 30 day(s) Active Timolol Maleate 0.5 % Ophthalmic; Duration: 75 Active Omeprazole 20 MG TAKE 1 CAPSULE BY [facility] DAILY 30 MINUTES BEFORE BREAKFAST; Duration: 30 Active Gabapentin 600 MG TAKE 1 TABLET BY [facility] AT BEDTIME Oral; Duration: 30 Active Betamethasone Dipropionate 0.05 % External; Duration: 30 Activ e Ketoconazole 2 % External; Duration: 30 Active Immunizations Vaccine Route Administration Date [...] Problem Status W/U Status Risk Notes Problem Colon cancer screening (559301558) Colon cancer screening (Z12.11) Active confirmed Problem Iron deficiency anemia (37009617) Iron deficiency anemia (D50.9) Active confirmed Problem Iron deficiency anemia (64422853) Iron deficiency anemia, unspecified iron deficiency anemia type (D50.9) Active confirmed Problem Preston esophagus (984235559) 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 Problem Drug-induced constipation (39789111) Drug-induced constipation (K59.03) Active confirmed Problem Gastroesophageal reflux disease (317315455) Gastroesophageal reflux disease, unspecified whether esophagitis present (K21.9) Active confirmed Plan Of Treatment Future Test Test Name Order Date COLONOSCOPY 11/18/2021 UPPER GI ENDOSCOPY 11/13/2023 COLONOSCOPY 11/13/2023 Next Appt Details Provider Name:Abdoulaye washington , 04/24/2025 01:15:00 PM, [address] [place] [address], [address], [place], [address], Insurance Providers Payer Name Payer Address Payer Phone Subscriber Number Group Number Insured Name Patient Relationship to Insured Coverage Start Date Coverage End Date [facility] [address] [place] [phone] [id number] LOLA JIMENEZ Self - patient is the insured Medical (General) History Medical History History ICD Code Panic disorder/anxiety Arthritis. BPH SOB Insomnia Colonoscopy 03/20, hyperplastic polyps, t en-year followup Surgical History Surgery Date(Month/Year) cateract eye surgery, left eye 2017 3 cateract surgery on left eye 2020
[2025-04-11 07:34] LABS: MANUAL DIFF FLAG NO
[2025-04-11 08:31] LABS: Hematocrit 41.3 % (42.0-52.0); Hemoglobin 13.0 g/dl (14.0-18.0); Imm Gran Abs Auto 0.02 X10*3/uL (0.00-0.03); Imm Gran Pct Auto 0.3 % (0.0-0.4); Lymphocytes Absolute Auto 2.2 X10*3/uL (1.2-4.9); Mean Corpuscular HGB Conc 31.5 g/dl (31.0-36.0); Mean Corpuscular Hemoglobin 27.5 pg (27.0-33.0); Mean Corpuscular Volume 87.3 fL (80.0-98.0); NRBC Abs Auto 0.000 X10*3/uL (0.0-0.012); NRBC Pct Auto 0.0 /100WBC (0.0-0.2); Platelet Count 193 X10*3/uL (160-400); Red Blood Count 4.73 X10*6/uL (4.60-5.80); White Blood Count 6.9 X10*3/uL (4.8-10.8)
[2025-04-11 09:06] LABS: Alanine Aminotransferase 26 U/L (0-40); Albumin Level 4.3 g/dL (3.5-5.0); Alkaline Phosphatase 63 U/L (39-117); Anion Gap 12 (12-20); Aspartate Amino Transferase 26 U/L (5-37); Blood Urea Nitrogen 19 mg/dL (9-16); Calcium 8.9 mg/dL (8.4-10.2); Carbon Dioxide 30 mmol/L (22-29); Chloride 108 mmol/L (96-108); Cholesterol 193 mg/dL (<200); Estimated Glomerular Filt Rate > 60; HDL Cholesterol 67 mg/dL (>40); Iron 76 mcg/dL (45-160); Percent Iron Saturation 32 % (15-50); Potassium 4.9 mmol/L (3.3-5.1); Sodium 145 mmol/L (135-145); Total Iron Binding Capacity 237 mcg/dL (228-428); Total Protein 7.1 g/dL (6.5-8.0); Triglycerides 67 mg/dL (<150); Unsaturated Iron Binding 161 ug/dL
[2025-04-11 09:33] LABS: Folate 14.1 ng/mL (> or = 4.0); Prostate Specific Antigen 3.82 ng/mL (<0.05-4.0); Vitamin B12 988 pg/mL (200-900)
[2025-04-11 12:17] LABS: Appearance Urine Clear; Glucose Urine UA Negative (Negative); PH 6.5 (5.0-9.0); Specific Gravity - Urine 1.010 (1.005-1.025)
== END 2025-04-11 07:08 | disposition home or self-care (01) ==
LOC: HO.LAB 07:07
PROVIDERS: PCP Internal Medicine; Visit Provider Internal Medicine
DX: Z12.5 Encounter for screening for malignant neoplasm of prostate (principal); E53.8 Deficiency of other specified B group vitamins; M19.90 Unspecified osteoarthritis, unspecified site; N40.0 Benign prostatic hyperplasia without lower urinary tract symptoms; E78.00 Pure hypercholesterolemia, unspecified; E55.9 Vitamin D deficiency, unspecified; D50.9 Iron deficiency anemia, unspecified; R30.0 Dysuria
CPT/HCPCS: 36415; 80053; 80061; 81003; 82306; 82607; 82746; 83540; 84153; 84443; 85025; 85652; 86140

== ENCOUNTER 2025-04-17 13:21 | Outpatient (AMB) | payer MEDICARE, SELFPAY ==
--- OUTSIDE RECORDS SUMMARY | 2023-11-24 08:00 | XMS_ITS ---
Author Organization [facility] Address [address] [facility] [address] [place] [address] Care Team Providers Care Fire Alarm Repairer Name Role Phone Loretta LUTHER, Jesse Primary Care Provider Abdoulaye Wong Jr REASON FOR VISIT gerd,fe def anemia Encounters Encounter Location Date Provider Diagnosis [facility] [address] [place] [id number] 11/24/2023 Abdoulaye Min Jr Plan Of Treatment Next Appt Details Provider Name:Abdoulaye washington Jr, 04/24/2025 01:15:00 PM, [address] [place] [address], [address], [place], [address], Progress Notes * LOLA JIMENEZ LDOB:[birth year] (69 yo M)Acc No.[id number]:11/24/2023 EGD and COL/MAC Patient: Elver NICOLELOLA RYAN Provider: Chelly Min MD :1955 A ge:68 Y S ex:Male Date:11/24/2023 Address:[address] , [facility] Pcp:Jesse Burgos MD Subjective: * Chief Complaints: [...] 11/24/2023 Generated for Lorie gutierres/Liliana/Allie on: 1 04:23 PM EDT
[2025-04-17 13:38] VITALS: BP 130/92; PULSE 100; O2SAT 96; BMI 29.3
--- NOTE | 2025-04-17 13:38 | MHC.PC.OV ---
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 Accompanied by: Self / Same As Patient Allergies No Known Allergies Allergy (Verified 04/17/25 14:39) Medication List - Last Reconciled 04/17/25 by Sravan Rodrigues MD alprazolam 1 mg PO TID PRN dorzolamide-timolol 22.3-6.8 mg/mL 1 drp ophthalmic (eye) BID doxepin 25 mg PO BEDTIME finasteride 5 mg PO DAILY gabapentin 600 mg PO BEDTIME 90 days omeprazole 20 mg PO DAILY ropinirole 2 mg PO BEDTIME triamcinolone acetonide 0.1% 1 appl topical BID 14 days Tobacco use date assessed: 04/17/25 Fall risk assessment: No Falls in past year Last assessed Fall Risk: 04/17/25 Dental Screening Dental Screen Date: 04/17/25 Did you have a dental visit in the last 12 months?: No Did you have a dental problem in the last 6 months where you did not have access to dental care?: No Was dental information given to patient?: Patient has dentist HPI 3 Months HPI Details Patient comes in today for his follow up visit States that he continues to experience frequent/recurrent joint and muscle pains all over, especially over his neck and lower back and which have been keeping him up at night often States that he has been taking Gabapentin for years (about 10 years) to help with his symptoms but he feels that his response is minimal Also feels that his restless leg symptoms have also gotten worse lately and that his current Rx (Ropinirole 2 mg) is no longer helping him He denies any headaches or dizziness Denies any chest pains, no increased SOB No nausea/vomiting, no abdominal pain No change in bowel habits noted He had his follow up labs done last week - to discuss his results [facility] Medical History (Updated 04/26/25 @ 11:40 by Sravan Rodrigues MD) Osteoarthritis Overweight (BMI 25.0-29.9) Insomnia GERD without esophagitis Glaucoma BPH (benign prostatic hyperplasia) GERD (gastroesophageal reflux disease) Anemia Anxiety Surgical History History of esophagogastroduodenoscopy (EGD) Hx of transurethral resection of prostate H/O colonoscopy Hx of cataract surgery Family History Mother No problems noted. Father No problems noted. Social History Housing: House Alcohol intake: current Alcohol intake frequency: holidays/special occasions only Patient Tobacco Use Status: Former Tobacco user Tobacco use type: Cigarette Years Smoked: 40 e-Cigarette/Vaping Use: Never Used Second Hand Smoke Exposure: No service: No Current occupational status: retired Cognitive needs: No Hearing needs: No Vision needs: Yes Questionnaire Thrive Questionnaire Date Thrive assessed: 01/05/25 I am a: Patient What is your living situation today?: I have a steady place to live Within the past 12 months, did the food you bought not last and you didn't have the money to get more?: Never true Within the past 12 months, did you worry whether your food would run out before you got money to buy more?: Never true Do you have trouble paying for medicines?: No Do you have trouble getting transportation to medical appointments?: No Do you have trouble paying your heating and electricity bill?: No Do you have trouble taking care of your child, family member or friend?: No Do you have trouble with day-to-day activities such as bathing, preparing meals, shopping, managing finances, etc.?: No Are you currently unemployed and looking for a job?: No Are you interested in more education?: No Please select the resources that you would like help with: None Currently or been in a relationship where the following occur: I choose not to answer THRIVE Score: 0 AUDIT C Alcohol Use Questionnaire (AUDIT-C) 1. How often do you have a drink containing alcohol?: Never 3. How often do you have six or more drinks on one occasion?: Never Total Score: 0 Score Reviewed/Action Taken: Yes HANG-7 AMB Questionnaire HANG-7 Date HANG - 7 assessed: 01/05/25 Source: Developed by Drs. Kameron Purcell, Lisseth Marinelli, Bebeto Cole and colleagues, with an educational pancho from [employer]. Review of Systems Const Denies chills, Reports difficulty sleeping (mostly due to his neck and lower back pain), Reports fatigue, Denies fever(s) and Denies headache(s) ENT Denies dysphagia, Denies dizziness, Denies otalgia, Denies headache(s), Reports neck pain, Denies odynophagia and Denies sore throat Card Denies chest pain, Denies rapid heart rate, Denies palpitations and Denies dyspnea Resp Denies chest congestion, Denies cough and Denies dyspnea GI Denies abdominal pain, Denies constipation, Denies dysphagia, Denies heartburn, Denies diarrhea, Denies nausea, Denies odynophagia and Denies vomiting Denies difficulty urinating, Denies dysuria and Denies urinary frequency Musc Reports back pain (over the lower back - chronic), Reports myalgias (diffuse), Reports arthralgias (involving multiple joints), Reports muscle cramps (recurrent over both legs, mostly at night) and Reports neck pain Skin/Breast Denies rash Neuro Denies dizziness, Denies headache(s), Reports restless legs and Denies paresthesias Psych Reports anxiety Endo Reports fatigue and Denies palpitations Physical exam (Primary Care) Vital Signs: Last Vital Signs Pulse 100 04/17/25 13:38 BP 130/92 H 04/17/25 13:38 Pulse Ox 96 04/17/25 13:38 Oxygen Delivery Method Room Air 04/17/25 13:38 BMI result Body Mass Index 29.3 Tobacco/Smoking Status: Tobacco use Status Tobacco use date assessed 04/17/25 04/17/25 13:41 Patient Tobacco Use Status Former Tobacco user 04/17/25 13:41 Tobacco use type Cigarette 04/17/25 13:41 e-Cigarette/Vaping Use Never Used 04/17/25 13:41 Thrive Assessment: Date of Thrive Assessment Date Thrive assessed 01/05/25 04/17/25 13:41 Currently or been in a relationship where the following occur: I choose not to answer Const General: no acute distress and alert HENMT Ears: TM's normal bilaterally and EAC's normal Throat: Yes posterior oropharynx normal and Yes tonsils normal (no TP congestion) Neck Neck: Yes supple and No lymphadenopathy Thyroid: Thyroid normal Resp Auscultation: clear to auscultation bilaterally, no rales and no wheezes Cardio Rate: regular rate Rhythm: regular rhythm Heart sounds: no murmurs GI Palpation (GI): Soft to palpation and nontender Auscultation: normal bowel sounds General: Yes no CVA tenderness Back/Spine/Pelvis Back: no CVA tenderness Cervical Spine: cervical muscular tenderness (bilateral, especially around both shoulder areas) and Cervical spine tenderness Thoracic/Lumbar Spine: lumbar spinal tenderness Skin Rashes: no rashes Extrem General: Yes no clubbing, cyanosis or edema Results Reviewed Results Reviewed: Laboratory Tests 04/11/25 04/11/25 07:25 08:30 WBC 6.9 Hgb 13.0 L Hct 41.3 L Plt Count 193 Eos % (Auto) 9.5 H ESR 7 Sodium 145 Potassium 4.9 Creatinine 1.13 Estimated GFR > 60 Fasting Glucose 91 Calcium 8.9 D Iron 76 TIBC 237 % Saturation 32 AST 26 ALT 26 C-Reactive Protein 0.82 H Triglycerides 67 Cholesterol 193 LDL Cholesterol, Calc 113 H HDL Cholesterol 67 Prostate Specific Ag 3.82 Vitamin B12 988 H 25-OH Vitamin D Total 35.8 TSH 1.38 Ur Specific [place] 1.010 Urine Protein Negative Urine Glucose (UA) Negative Urine Blood Negative Urine Nitrite Negative Ur Leukocyte Esterase Negative Coding Level of Care Code Est Pt Level 4 (51414) Diagnoses Polymyalgia rheumatica M35.3 Primary osteoarthritis, unspecified site M19.91 Osteoarthritis location: unspecified site Osteoarthritis type: primary GERD without esophagitis K21.9 Restless legs syndrome G25.81 Benign prostatic hyperplasia, unspecified whether lower urinary tract symptoms present N40.0 Lower urinary tract symptom presence: unspecified whether lower urinary tract symptoms present Glaucoma of both eyes, unspecified glaucoma type H40.9 Glaucoma type: unspecified Laterality: bilateral Insomnia, unspecified type G47.00 Insomnia type: unspecified Anxiety F41.9 Overweight (BMI 25.0-29.9) E66.3 Assessment & Plan Assessment & Plan (1) Polymyalgia rheumatica: Code(s): M35.3 - Polymyalgia rheumatica Category: Medical Plan: His ESR was normal but CRP was slightly elevated on his recent labs Per request, will refer him to rheumatology for further evaluation and management (2) Osteoarthritis: Code(s): M19.90 - Unspecified osteoarthritis, unspecified site Category: Medical Qualifiers: Osteoarthritis location: unspecified site Osteoarthritis type: primary Qualified Code(s): M19.91 - Primary osteoarthritis, unspecified site Plan: Patient used to follow-up with rheumatology at [facility] [place] regularly for his arthritis and joint pains but was reportedly advised at his last visit there earlier this year that he does not need to return there as there is not much else they can do for him and he can just have his PCP refill his meds and Gabapentin Rx going forward Continue Gabapentin 600 mg Q HS Per request, will try referring him to [facility] Rheumatology instead (3) GERD without esophagitis: Code(s): K21.9 - Gastro-esophageal reflux disease without esophagitis Category: Medical Plan: Dietary restrictions reinforced His repeat EGD done in November 2023 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 Continue Omeprazole 20 mg QD Follow up with GI as scheduled for continuing surveillance (4) Restless legs syndrome: Code(s): G25.81 - Restless legs syndrome Category: Medical Plan: Will increase his Ropinirole now to 3 mg Q HS (5) BPH (benign prostatic hyperplasia): Code(s): N40.0 - Benign prostatic hyperplasia without lower urinary tract symptoms Category: Medical Qualifiers: Lower urinary tract symptom presence: unspecified whether lower urinary tract symptoms present Qualified Code(s): N40.0 - Benign prostatic hyperplasia without lower urinary tract symptoms Plan: Continue Finasteride 5 mg QD Follow up with urology as scheduled (6) Glaucoma: Code(s): H40.9 - Unspecified glaucoma Category: Medical Qualifiers: Glaucoma type: unspecified Laterality: bilateral Qualified Code(s): H40.9 - Unspecified glaucoma Plan: Continue Dorzolamide-Timolol eye drops 22.3-6.8 mg/ml 1 drop into each eye BID Follow-up with ophthalmology as scheduled (7) Insomnia: Code(s): G47.00 - Insomnia, unspecified Category: Medical Qualifiers: Insomnia type: unspecified Qualified Code(s): G47.00 - Insomnia, unspecified Plan: Sleep hygiene reinforced Continue Doxepin 25 mg Q HS (8) Anxiety: Code(s): F41.9 - Anxiety disorder, unspecified Category: Medical Plan: Continue Alprazolam 1 mg TID PRN (9) Overweight (BMI 25.0-29.9): Code(s): E66.3 - Overweight Category: Medical Plan: Reinforced diet; exercise and weight loss are impractical/unrealistic due to patient's physical issues Plan Results of his labs done last week reviewed and discussed with patient - he is reassured that the rest of his labs are mostly within normal range Follow-up in 4 months Orders: Orders Comprehensive [place]. Panel Fast 4 Months E78.00 - Pure hypercholesterolemia, unspecified Lipid Panel 4 Months E78.00 - Pure hypercholesterolemia, unspecified Referrals Rheumatology Referral M35.3 - Polymyalgia rheumatica, M19.90 - Unspecified osteoarthritis, unspecified site Medications: New tizanidine 4 mg PO BEDTIME PRN 30 tabs 2RF muscle spasms 30 days Changed From ropinirole administer 1-3 hours before bedtime 2 mg PO BEDTIME 30 tabs 2RF To ropinirole administer 1-3 hours before bedtime 3 mg PO BEDTIME 30 tabs 2RF 30 days
--- OUTSIDE RECORDS SUMMARY | 2025-04-17 16:23 | XMS_ITS | Patient Health Record ---
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 Problem Drug-induced constipation (52096182) Drug-induced constipation (K59.03) Active confirmed Problem Gastroesophageal reflux disease (499478347) Gastroesophageal reflux disease, unspecified whether esophagitis present (K21.9) Active confirmed Plan Of Treatment Future Test Test Name Order Date COLONOSCOPY 11/18/2021 UPPER GI ENDOSCOPY 11/13/2023 COLONOSCOPY 11/13/2023 Next Appt Details Provider Name:Abdoulaye washington , 04/24/2025 01:15:00 PM, [address] [place] [address], [address], [place], [address], Insurance Providers Payer Name Payer Address Payer Phone Subscriber Number Group Number Insured Name Patient Relationship to Insured Coverage Start Date Coverage End Date [facility] [address] [place] [phone] [id number] JIMENEZ Self - patient is the insured Medical (General) History Medical History History ICD Code Panic disorder/anxiety Arthritis. BPH SOB Insomnia Colonoscopy 03/20, hyperplastic polyps, t en-year followup Surgical History Surgery Date(Month/Year) cateract eye surgery, left eye 2017 3 cateract surgery on left eye 2020
== END 2025-04-17 14:59 | disposition home or self-care (01) ==
LOC: HO.HMCH 13:22
PROVIDERS: PCP Internal Medicine; Visit Provider Internal Medicine
DX: M35.3 Polymyalgia rheumatica (principal); M19.91 Primary osteoarthritis, unspecified site; K21.9 Gastro-esophageal reflux disease without esophagitis; G25.81 Restless legs syndrome; N40.0 Benign prostatic hyperplasia without lower urinary tract symptoms; H40.9 Unspecified glaucoma; G47.00 Insomnia, unspecified; F41.9 Anxiety disorder, unspecified; E66.3 Overweight

== ENCOUNTER → 2025-04-17 13:21 | Outpatient (BNVA) | payer MEDICARE, SELFPAY | PROVIDERS: PCP Internal Medicine; Visit Provider Internal Medicine | DX: M35.3 Polymyalgia rheumatica (principal); M54.2 Cervicalgia; M54.50 Low back pain, unspecified; M19.91 Primary osteoarthritis, unspecified site; K21.9 Gastro-esophageal reflux disease without esophagitis; G25.81 Restless legs syndrome; N40.0 Benign prostatic hyperplasia without lower urinary tract symptoms; H40.9 Unspecified glaucoma; G47.00 Insomnia, unspecified; F41.9 Anxiety disorder, unspecified; E66.3 Overweight; Z68.29 Body mass index [BMI] 29.0-29.9, adult | CPT/HCPCS: 99212 ==

== ENCOUNTER 2025-05-31 14:13 | Outpatient (AMB) | payer MEDICARE, SELFPAY ==
--- OUTSIDE RECORDS SUMMARY | 2023-12-25 06:50 | XMS_ITS ---
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 Encounters Encounter Location Date Provider Diagnosis [facility] Outpatient [address] [place] [id number] 12/25/2023 Abdoulaye Min Jr Colon polyps K63.5 ; Iron deficiency anemia D50.9 ; Hiatal hernia K44.9 and Preston esophagus K22.70 Assessments Encounter Date Diagnosis (ICD Code) Assessment Notes Treatment Notes Treatment Clinical Notes Section Notes 12/25/2023 Colon polyps (ICD-10 - K63.5) 12/25/2023 Iron deficiency anemia (ICD-10 - D50.9) 12/25/2023 Hiatal hernia (ICD-10 - K44.9) 12/25/2023 Preston esophagus (ICD-10 - K22.70) Plan Of Treatment Next Appt Details Provider Name:Abdoulaye washington Jr, 04/26/2026 02:30:00 PM, [address], [address], [place], [address], Progress Notes * LOLA JIMENEZ LDOB:[birth year] (69 yo M)Acc No.[id number]:12/25/2023 EGD and COL/MAC Patient: LOLA LAINEZ Provider: Chelly Min MD :1955 A ge:68 Y S ex:Male Date:12/25/2023 Address:[address] [place] [address] Pcp:Sravan Rodrigues MD Subjective: * Chief Complaints: * G erd, fe def anemia Assessment: * Assessment: 1. C olon polyps - K63.5 (Primary) 2 . I anil deficiency anemia - D50.9 3 . H iatal hernia - K44.9 4 . B arrett esophagus - K22.70 ? Plan: * Procedure Codes: 4 5385 LESION REMOVAL [id number] UPPER GI ENDOSCOPY, BIOPSY Billing Information: * Procedure Codes: 21493 LESION REMOVAL COLONOSCOPY. 26442 UPPER GI ENDOSCOPY, BIOPSY. * The named appointment provid er may or may not be the originator of this progress note, and it is not deemed complete until electronically signed by the appointment provider. Sign off status: Pending * Provider: Chelly Min MD Date: 0 12/25/2023 Generated for Lorie gutierres/Liliana/Saeitting on: 08/01/2024 05:02 PM EST
--- NOTE | 2025-05-31 14:14 | AM.OFFWIN_ITS ---
Intake Vital Signs 05/31/25 14:15 Height 6 ft Weight 99.337 kg BMI 29.7 BP 114/72 Blood Pressure Location Rt brachial Position Sitting Pulse 105 H Pulse Source Pulse Oximeter Temp 98.4 F Temp Source Oral Pulse Oximetry (%) 98 Oxygen Delivery Method Room Air Intake Visit Reasons: EP-body rash Intake Note: Patient presents c/o itchy, red rash all over body x1 1/2 weeks. Patient seen in November 2024 for the same thing under his armpits & prescribed triamcinolone cream which he found helpful. Patient Tobacco Use Status: Former Tobacco user Allergies No Known Allergies Allergy (Verified 05/31/25 14:17) HPI HPI Comments History of Present Illness Details Chief Complaint: ?I?ve torn up my legs and back from an itchy rash.? History of Present Illness: 80-year-old male presenting for evaluati on of a recurrent pruritic rash. ? Onset/Duration: Rash present for several weeks; worse than prior episodes. ? Diabetes: Patient reports history of diabetes (confirmed I am in transcript) when asked prior to steroid prescription. ? Location: Bilateral lateral legs, mid-back, and flanks. ? Quality/Severity: Severe pruritus leading to excoriations; legs described as ?bloody and red? from scratching. ? Modifying factors: Currently taking 3?4 tabs of diphenhydramine nightly for symptom control and sleep. Previously used calamine lotion (stopped per prior guidance). Reports prior benefit from a prescription topical cream (small tube) and oral prednisone courses. ? Associated symptoms: Intermittent shortness of breath at night 2?3 days ago that has since resolved. Denies other systemic symptoms. ? Prior evaluations/treatment: Seen 2?3 times over past few years for same rash; no dermatology consultation to date. Attempted to get in with dermatologists (Dr. Rosado?1-year wait; another provider ?Lexie? whose treatment worsened rash). Requests larger refill of prior topical cream and agrees to short prednisone course. Also interested in dermatology or allergy/immunology referral. ? Additional concerns: Mild ge Recurrent pruritic dermatitis with excoriations, currently flaring; patient requests medication refills and specialist referral. Problem #1: Recurrent pruritic rash / dermatitis Assessment: Acute exacerbation of chronic, previously responsive rash. Severe pruritus with excoriations; no current signs of infection. Lungs clear; short course of systemic steroids used successfully in past. Plan: * Prednisone 16 mg PO daily ? 5 days; patient instructed to start today. * Refill prior prescription topical cream (larger tube or two small tubes as available). * Continue diphenhydramine at night as needed for pruritus and sleep. * Referral: Recommend dermatology evaluation; allergy/immunology referral also discussed. Patient to request referral through PCP (Dr. Vital). * Return to clinic or ED for spreading rash, signs of infection (fever, increased redness, drainage), or if no improvement after steroid course. Problem #2: Mild musculoskeletal soreness from shoveling Assessment: Self-limited muscle soreness. Plan: * Reassurance; conservative measures (rest, as tolerated). No medication requested. Follow-up: Routine follow-up with PCP and dermatology as scheduled. Return sooner for any worsening or new concerns. [facility] Medical History (Updated 04/26/25 @ 11:40 by Sravan Rodrigues MD) Osteoarthritis Overweight (BMI 25.0-29.9) Insomnia GERD without esophagitis Glaucoma BPH (benign prostatic hyperplasia) GERD (gastroesophageal reflux disease) Anemia Anxiety Surgical History History of esophagogastroduodenoscopy (EGD) Hx of transurethral resection of prostate H/O colonoscopy Hx of cataract surgery Family History Mother No problems noted. Father No problems noted. Social History Housing: House Alcohol intake: current Alcohol intake frequency: holidays/special occasions only Patient Tobacco Use Status: Former Tobacco user Tobacco use type: Cigarette Years Smoked: 40 e-Cigarette/Vaping Use: Never Used Second Hand Smoke Exposure: No service: No Current occupational status: retired Cognitive needs: No Hearing needs: No Vision needs: Yes Review of Systems Narrative Review of Systems: Skin: Positive for itchy rash with excoriations and redness on legs and back. Respiratory: Brief episode of nocturnal shortness of breath 2?3 days ago; resolved. Musculoskeletal: Mild soreness after shoveling. All other systems not discussed. Family History: Not discussed. Const All systems reviewed & are unremarkable except as noted in HPI and below Physical Exam Exam Exam: Appearance: Alert.? Oriented X3.? No acute distress.? Head: Normocephalic, atraumatic, no step-offs or deformities Eyes: Pupils equal, round and reactive to light.? Neck: Normal inspection.? Neck supple.? CVS: Normal heart rate and rhythm.? Pulses normal.? Respiratory: No respiratory distress.? Breath sounds normal.? Abdomen: Soft and nontender.? Skin: Skin warm and dry.? Normal skin color.? Normal skin turgor.?+Excoriated, erythematous patches with crusted areas on bilateral lateral legs, mid-back, and flanks. Respiratory: Lungs clear to auscultation bilaterally. Extremities: No lower extremity edema.? No calf ttp. 5/5 strength to bilateral upper and lower extremities Back: No midline tenderness, no C-spine tenderness, full range of motion, no CVA tenderness bilaterally Neuro: Oriented X 3.? No motor deficit.? No sensory deficit. CN 2-12 intact Vital Signs: Last Vital Signs Temp 98.4 F 05/31/25 14:15 Pulse 105 H 05/31/25 14:15 BP 114/72 05/31/25 14:15 Pulse Ox 98 05/31/25 14:15 Oxygen Delivery Method Room Air 05/31/25 14:15 BMI result Body Mass Index 29.7 vss Assessment & Plan Assessment & Plan (1) Rash: Code(s): R21 - Rash and other nonspecific skin eruption Plan Take your medications as prescribed. If you were prescribed antibiotics today, it is important that you take your medication to their entirety, do not skip any doses, do not finish them early. Follow-up with your primary care provider this week. Return to the emergency department with new or worsening symptoms. In case of emergency call 911 Medications: New prednisone 60 mg (3 x 20 mg) PO DAILY 15 tabs 0RF 5 days Refilled triamcinolone acetonide 0.1% 1 appl topical BID 80 grams 1RF 14 days Coding Level of Care Code Est Pt Level 3 (24312) Diagnoses Rash R21
[2025-05-31 14:15] VITALS: BP 114/72; PULSE 105; TEMP 36.9; O2SAT 98; BMI 29.7
--- OUTSIDE RECORDS SUMMARY | 2025-05-31 17:02 | XMS_ITS | Patient Health Record ---
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 Name Role Phone Ravi LUTHER, [place] Primary Care Provider Abdoulaye Swift Jr Unavailable Allergies No Known Allergies Reason For Referral No Information Medications Medication SIG (Take, Route, Frequency, Duration) Notes Start Date End Date Status Finasteride 5 MG Tablet 1 tablet Orally Once a day; Duration: 30 day(s) Active Doxepin HCl 25 MG Capsule 1 capsule at b edtime Orally Once a day; Duration: 30 day(s) Active Timolol Maleate 0.5 % Solution Ophthalmic; Duration: 75 Act jerri ALPRAZolam 1 MG Tablet TAKE 1 TABLET BY MOUTH THREE TIMES DAILY NEEDED FOR ANXIETY Oral; Duration: 30 Active Betamethasone Dipropionate 0.05 % Lotion External; Duration: 30 Acti ve tiZANidine HCl 4 MG Tablet 1 tablet at b edtime as needed Orally Once a day Active Gabapentin 600 MG Tablet TAKE 1 TABLET B Y MOUTH AT BEDTIME Oral; Duration: 30 Active rOPINIRole HCl 4 MG Tablet 1 tablet 1 to 3 hours before bedtime Orally Once a day Active Multi Vitamin - Tablet 1 tablet Orally O nce a day; Duration: 30 day(s) Active Omeprazole 20 MG Capsule Delayed Release TAKE 1 CAPSULE BY MOUTH DAILY 30 MINUTES BEFORE BREAKFAST; Duration: 30 Active Colyte with Flavor Packs 240 GM Solution Reconstituted As directed Orally Over the specified time.; Duration: 1 day(s) 12/03/2023 Active Immunizations Vaccine Route Administration Date Status Comme nts Influenza Unknown 04/17/2021 Administered Influenza Unknown 04/21/2023 Administered Influenza Unknown 04/21/2024 Administered Social History Tobacco Use: Social History Observation Description Date Details (start date - stop date) Never Smoker NA - NA Social History Drugs/Alcohol: Social Info Question Answer Notes Alcohol Screen Did you have a drink containing alcohol in the past year? No Points 0 Interpretation Negative Tobacco Use: Social Info Question Answer Notes Tobacco Use/Smoking Patient is a nonsmoker Additional Details Category Social Info Options Details Miscellaneous: Marital status: Occupation: retired Problems Problem Type SNOMED Code ICD Code Onset Dates Problem Status W/U Status Risk Notes Problem Colon cancer screening (145025732) Colon cancer screening (Z12.11) Active confirmed Problem Iron deficiency anemia (16492901) Iron deficiency anemia (D50.9) Active confirmed Problem Iron deficiency anemia (11473795) Iron deficiency anemia, unspecified iron deficiency anemia type (D50.9) Active confirmed Problem 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 Problem Drug-induced constipation (22546568) Drug-induced constipation (K59.03) Active confirmed Problem Gastroesophageal reflux disease (669377723) Gastroesophageal reflux disease, unspecified whether esophagitis present (K21.9) Active confirmed Vital Signs Temperature 98.0 degrees Fahrenheit 04/24/2025 Blood pressure diastolic 01 mm Hg 04/24/2025 Height 72 in 04/24/2025 Blood pressure systolic 001 mm Hg 04/24/2025 Weight 218 lbs 04/24/2025 BMI 29.56 kg/m2 04/24/2025 Encounters Encounter Location Date Provider Diagnosis [facility] [address] [place] [id number] 04/24/2025 Abdoulaye Min Jr Preston esophagus K22.70 and Colon cancer screening Z12.11 Assessments Encounter Date Diagnosis (ICD Code) Assessment Notes Treatment Notes Treatment Clinical Notes Section Notes 04/24/2025 Colon cancer screening (ICD-10 - Z12.11) 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 We discussed follow-up in 1 year where repeat endoscopy will be arranged. He is aware of risks and benefits and agrees to proceed. He will continue antacid therapy with his present regimen. We discussed diet, lifestyle modifications, and weight management regarding the treatment of reflux. He is up-to-date on colorectal cancer screening. 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 We discussed follow-up in 1 year where repeat endoscopy will be arranged. He is aware of risks and benefits and agrees to proceed. He will continue antacid therapy with his present regimen. We discussed diet, lifestyle modifications, and weight management regarding the treatment of reflux. He is up-to-date on colorectal cancer screening. Plan Of Treatment Future Test Test Name Order Date COLONOSCOPY 11/18/2021 UPPER GI ENDOSCOPY 11/13/2023 COLONOSCOPY 11/13/2023 Next Appt Details Provider Name:Abdoulaye Aida [place] , 04/26/2026 02:30:00 PM, [address] [place] [address], [address], [place], [phone], Insurance Providers Payer Name Payer Address Payer Phone Subscriber Number Group Number Insured Name Patient Relationship to Insured Coverage Start Date Coverage End Date [facility] [address] [place] [phone] [id number] Self - patient is the insured 4 Medical (General) History Medical History History ICD Code Panic disorder/anxiety Arthritis. BPH SOB Insomnia Colonoscopy 12/20, hyperplastic polyp, 10 -year follow-up. restless leg Upper endoscopy 12/20, Preston's esophagu s, no dysplasia, 2-year follow-up Surgical History Surgery Date(Month/Year) cateract eye surgery, left eye 2017 3 cateract surgery on left eye 2020
== END 2025-05-31 14:59 | disposition home or self-care (01) ==
PROVIDERS: PCP Internal Medicine; Visit Provider Physician Assistant
DX: R21 Rash and other nonspecific skin eruption (principal)

== ENCOUNTER → 2025-05-31 14:13 | Outpatient (BNVA) | payer MEDICARE, SELFPAY | PROVIDERS: PCP Internal Medicine; Visit Provider Physician Assistant | DX: R21 Rash and other nonspecific skin eruption (principal) | CPT/HCPCS: 99212 ==